=== PATIENT | male | born 1940 | race Hispanic/Latino ===

== ENCOUNTER 2017-01-10 13:54 | Inpatient (IN) | payer MEDICARE ==
--- NOTE | 2017-01-10 15:40 | XRay Report ---
PORTABLE CHEST INDICATION: Shortness of breath. COMPARISON: 12/26/2016 FINDINGS: Portable, frontal chest radiograph demonstrates stable cardiomediastinal silhouette. No focal consolidation, pleural effusions or CHF. Aortic knob calcifications. Thoracic spondylosis. CONCLUSION: No acute significant chest process, stable. Thank you for the opportunity to participate in this patient's care.
[2017-01-10 15:43] LABS: Basophils % (Auto) 0.5 % (0.0-1.8); Eosinophils % (Auto) 8.8 % (0.0-4.3); Hematocrit 40.7 % (35.5-45.6); Hemoglobin 13.5 gm/dl (11.8-15.2); Mean Corpuscular HGB Conc 33 % (32-34); Mean Corpuscular Hemoglobin 28 pg (28-32); Mean Corpuscular Volume 84 fl (84-94); Platelet Count 281 K/mm3 (140-440); Red Blood Count 4.87 M/mm3 (3.65-5.03); Red Cell Distribution Width 15.2 % (13.2-15.2); White Blood Count 10.4 K/mm3 (4.5-11.0)
[2017-01-10 15:57] LABS: Albumin 3.3 g/dL (3.9-5); Albumin/Globulin Ratio 1.3 %; BUN/Creatinine Ratio 10.95; Bilirubin,Total 0.6 mg/dL (0.1-1.2); Calcium 8.8 mg/dL (8.4-10.2); Chloride 104.2 mmol/L (98-107); Magnesium 1.8 mg/dL (1.7-2.3); Total Protein 5.9 g/dL (6.3-8.2)
[2017-01-10 16:12] LABS: Bilirubin,Urine Negative (Negative); Blood,Urine Moderate (Negative); Ketones,Urine Negative (Negative)
[2017-01-10 16:13] LABS: Leukocyte Esterase,Urine Negative (Negative); Nitrite,Urine Negative (Negative); Urobilinogen,Urine < 2.0 mg/dL (<2.0)
[2017-01-10 16:14] LABS: Mucus,Urine FEW /HPF
--- NOTE | 2017-01-10 16:56 | Emergency Department Report ---
ED Altered Mental Status HPI - General Chief Complaint: Altered Mental Status Stated Complaint: FLUID OVERLOAD/ AMS Time Seen by Provider: 01/10/17 16:40 Source: family, RN/MD, EMS Mode of arrival: Stretcher Limitations: Altered Mental Status, Physical Limitation - History of Present Illness Initial Comments: Patient is a 76-year-old male who presents with altered mental status. History is limited due to patient's altered mental status. Patient was recently in the hospital. He had recent stents placed in the bladder is currently alert and oriented [address] Patient denies pain. Discussed with patient's family A state that he hasn't been eating well. And that he has not been taking his medication at the halfway. They are concerned that he is not getting appropriate care at the halfway. - Related Data Home Medications Medication Instructions Recorded Confirmed Last Taken Acetaminophen [Acetaminophen TAB] 650 mg PO Q4H PRN MDD 3000mg 12/26/16 Unknown Bisacodyl [Dulcolax suppos] 10 mg MO PRN PRN 12/26/16 01/10/17 Unknown Calcitriol [Rocaltrol] 0.5 mcg PO QDAY 12/26/16 01/10/17 01/09/17 08:00 Calcium Carbonate [Calcium] 1,000 mg PO AC 12/26/16 01/10/17 01/09/17 08:00 Carvedilol [Coreg] 3.125 mg PO BID 12/26/16 01/10/17 01/09/17 21:00 Donepezil [Aricept] 10 mg PO QHS 12/26/16 01/10/17 01/09/17 21:00 Escitalopram [Lexapro] 10 mg PO QDAY 12/26/16 01/10/17 01/09/17 08:00 ISOSORBIDE MONOnitrate [Imdur ER] 30 mg PO QDAY 12/26/16 01/10/17 01/09/17 08:00 Lactobacillus Rhamnosus GG 1 cap PO BID 12/26/16 01/10/17 01/09/17 08:00 [Culturelle] NIFEdipine [Nifedipine ER] 30 mg PO QDAY 12/26/16 01/10/17 01/09/17 08:00 Sodium Bicarbonate 1,300 mg PO QID 12/26/16 01/10/17 01/09/17 21:00 Tamsulosin [Flomax] 0.4 mg PO QDAY 12/26/16 01/10/17 01/09/17 21:00 Therapeutic-M 1 tab PO QDAY 12/26/16 01/10/17 01/09/17 08:00 hydrALAZINE [Apresoline TAB] 75 mg PO BID 12/26/16 01/10/17 01/09/17 21:00 medroxyPROGESTERone ACETATE 20 mg PO QDAY 12/26/16 01/10/17 01/09/17 08:00 [Provera] risperiDONE [RisperiDONE] 1 mg PO BID 12/26/16 01/10/17 01/09/17 21:00 Allergies Allergy/AdvReac Type Severity Reaction Status Date / Time No Known Allergies Allergy Verified 01/10/17 19:52 ED Review of Systems ROS: Stated complaint: FLUID OVERLOAD/ AMS Other details as noted in HPI Comment: Unobtainable due to pts medical conditions ED Past Medical Hx - Past Medical History Hx Hypertension: Yes Hx Congestive Heart Failure: Yes Hx GERD: Yes Hx Renal Disease: Yes (BPH,) Hx Dementia: Yes Additional medical history: depressive, BPH - Surgical History Additional Surgical History: stents placed in bladder - Social History Smoking Status: Unknown if ever smoked - Medications Home Medications: Home Medications Medication Instructions Recorded Confirmed Last Taken Type Acetaminophen [Acetaminophen TAB] 650 mg PO Q4H PRN MDD 3000mg 12/26/16 Unknown History Bisacodyl [Dulcolax suppos] 10 mg MO PRN PRN 12/26/16 01/10/17 Unknown History Calcitriol [Rocaltrol] 0.5 mcg PO QDAY 12/26/16 01/10/17 01/09/17 08:00 History Calcium Carbonate [Calcium] 1,000 mg PO AC 12/26/16 01/10/17 01/09/17 08:00 History Carvedilol [Coreg] 3.125 mg PO BID 12/26/16 01/10/17 01/09/17 21:00 History Donepezil [Aricept] 10 mg PO QHS 12/26/16 01/10/17 01/09/17 21:00 History Escitalopram [Lexapro] 10 mg PO QDAY 12/26/16 01/10/17 01/09/17 08:00 History ISOSORBIDE MONOnitrate [Imdur ER] 30 mg PO QDAY 12/26/16 01/10/17 01/09/17 08: 00 History Lactobacillus Rhamnosus GG 1 cap PO BID 12/26/16 01/10/17 01/09/17 08:00 History [Culturelle] NIFEdipine [Nifedipine ER] 30 mg PO QDAY 12/26/16 01/10/17 01/09/17 08:00 History Sodium Bicarbonate 1,300 mg PO QID 12/26/16 01/10/17 01/09/17 21:00 History Tamsulosin [Flomax] 0.4 mg PO QDAY 12/26/16 01/10/17 01/09/17 21:00 History Therapeutic-M 1 tab PO QDAY 12/26/16 01/10/17 01/09/17 08:00 History hydrALAZINE [Apresoline TAB] 75 mg PO BID 12/26/16 01/10/17 01/09/17 21:00 History medroxyPROGESTERone ACETATE 20 mg PO QDAY 12/26/16 01/10/17 01/09/17 08:00 History [Provera] risperiDONE [RisperiDONE] 1 mg PO BID 12/26/16 01/10/17 01/09/17 21:00 History ED Physical Exam - General Limitations: Altered Mental Status, Physical Limitation General appearance: alert - Head Head exam: Present: atraumatic, normocephalic - Eye Eye exam: Present: normal appearance Pupils: Present: normal accommodation - ENT ENT exam: Present: normal exam - Neck Neck exam: Present: normal inspection - Respiratory Respiratory exam: Present: normal lung sounds bilaterally - Cardiovascular Cardiovascular Exam: Present: regular rate, normal rhythm - GI/Abdominal GI/Abdominal exam: Present: soft - Rectal Rectal exam: Present: deferred - Extremities Exam Extremities exam: Present: pedal edema, other (swelling in hands ) - Back Exam Back exam: Present: normal inspection - Neurological Exam Neurological exam: Present: CN II-XII intact, other (confused and slow to respond ) - Psychiatric Psychiatric exam: Present: flat affect. Absent: manic, homicidal ideation, suicidal ideation - Skin Skin exam: Present: warm, dry ED Course Vital Signs 01/10/17 01/10/17 01/10/17 14:48 16:54 18:55 Temperature 98.7 F Pulse Rate 67 87 Respiratory 16 20 18 Rate Blood Pressure 130/66 Blood Pressure 130/78 [Left] O2 Sat by Pulse 98 99 100 Oximetry 01/10/17 19:48 Temperature Pulse Rate 63 Respiratory 16 Rate Blood Pressure Blood Pressure 126/67 [Left] O2 Sat by Pulse 96 Oximetry - Reevaluation(s) Reevaluation #1: 01/10/17 19:53 Patient's family is at bedside and discussed that patient will need admission due to altered mental status. And not eating as much as he usually eats. He also needs to be diuresed. Reevaluation #2: 01/10/17 21:00 Discussed with patient's family the patient will be admitted they agree with plan and have no further questions. - Lab Data Result diagrams: 01/10/17 15:14 01/10/17 15:14 Lab Results 01/10/17 01/10/17 01/10/17 Range/Units 14:57 15:14 15:14 WBC 10.4 (4.5-11.0) K/mm3 RBC 4.87 (3.65-5.03) M/mm3 Hgb 13.5 (11.8-15.2) gm/dl Hct 40.7 (35.5-45.6) % MCV 84 (84-94) fl MCH 28 (28-32) pg MCHC 33 (32-34) % RDW 15.2 (13.2-15.2) % Plt Count 281 (140-440) K/mm3 Lymph % (Auto) 8.0 L (13.4-35.0) % [place] % (Auto) 7.9 H (0.0-7.3) % Eos % (Auto) 8.8 H (0.0-4.3) % Baso % (Auto) 0.5 (0.0-1.8) % Lymph # 0.8 L (1.2-5.4) K/mm3 [place] # 0.8 (0.0-0.8) K/mm3 Eos # 0.9 H (0.0-0.4) K/mm3 Baso # 0.1 (0.0-0.1) K/mm3 Seg Neutrophils % 74.8 H (40.0-70.0) % Seg Neutrophils # 7.8 H (1.8-7.7) K/mm3 Sodium 144 (137-145) mmol/L Potassium 4.0 (3.6-5.0) mmol/L Chloride 104.2 (98-107) mmol/L Carbon Dioxide 23 (22-30) mmol/L Anion Gap 21 mmol/L BUN 23 H (9-20) mg/dL Creatinine 2.1 H (0.8-1.5) mg/dL Estimated GFR 31 ml/min BUN/Creatinine Ratio 10.95 % Glucose 85 (75-100) mg/dL Lactic Acid (0.7-2.0) mmol/L Calcium 8.8 (8.4-10.2) mg/dL Magnesium 1.80 (1.7-2.3) mg/dL Total Bilirubin 0.60 (0.1-1.2) mg/dL AST 18 (5-40) units/L ALT 9 (7-56) units/L Alkaline Phosphatase 119 (35-129) units/L Troponin T (0.00-0.029) ng/mL NT-Pro-B Natriuret Pep (0-900) pg/mL Total Protein 5.9 L (6.3-8.2) g/dL Albumin 3.3 L (3.9-5) g/dL Albumin/Globulin Ratio 1.3 % Triglycerides (2-149) mg/dL Cholesterol (50-199) mg/dL LDL Cholesterol Direct (50-130) mg/dL HDL Cholesterol (40-59) mg/dL Cholesterol/HDL Ratio % TSH (0.270-4.200) mlU/mL Urine Color Yellow (Yellow) Urine Turbidity Hazy (Clear) Urine pH 6.0 (5.0-7.0) Ur Specific [place] 1.010 (1.003-1.030) Urine Protein 100 mg/dl (Negative) mg/dL Urine Glucose (UA) Negative (Negative) mg/dL Urine Ketones Negative (Negative) mg/dL Urine Blood Moderate A (Negative) Urine Nitrite Negative (Negative) Urine Bilirubin Negative (Negative) Urine Urobilinogen < 2.0 (<2.0) mg/dL Ur Leukocyte Esterase Negative (Negative) Urine WBC (Auto) 37.0 H (0.0-6.0) /HPF Urine RBC (Auto) 171.0 (0.0-6.0) /HPF Urine Mucus Few /HPF 01/10/17 01/10/17 01/10/17 Range/Units 15:14 15:14 15:14 WBC (4.5-11.0) K/mm3 RBC (3.65-5.03) M/mm3 Hgb (11.8-15.2) gm/dl Hct (35.5-45.6) % MCV (84-94) fl MCH (28-32) pg MCHC (32-34) % RDW (13.2-15.2) % Plt Count (140-440) K/mm3 Lymph % (Auto) (13.4-35.0) % [place] % (Auto) (0.0-7.3) % Eos % (Auto) (0.0-4.3) % Baso % (Auto) (0.0-1.8) % Lymph # (1.2-5.4) K/mm3 [place] # (0.0-0.8) K/mm3 Eos # (0.0-0.4) K/mm3 Baso # (0.0-0.1) K/mm3 Seg Neutrophils % (40.0-70.0) % Seg Neutrophils # (1.8-7.7) K/mm3 Sodium (137-145) mmol/L Potassium (3.6-5.0) mmol/L Chloride (98-107) mmol/L Carbon Dioxide (22-30) mmol/L Anion Gap mmol/L BUN (9-20) mg/dL Creatinine (0.8-1.5) mg/dL Estimated GFR ml/min BUN/Creatinine Ratio % Glucose (75-100) mg/dL Lactic Acid 1.00 (0.7-2.0) mmol/L Calcium (8.4-10.2) mg/dL Magnesium (1.7-2.3) mg/dL Total Bilirubin (0.1-1.2) mg/dL AST (5-40) units/L ALT (7-56) units/L Alkaline Phosphatase (35-129) units/L Troponin T 0.057 H (0.00-0.029) ng/mL NT-Pro-B Natriuret Pep 1103 H (0-900) pg/mL Total Protein (6.3-8.2) g/dL Albumin (3.9-5) g/dL Albumin/Globulin Ratio % Triglycerides 69 (2-149) mg/dL Cholesterol 151 (50-199) mg/dL LDL Cholesterol Direct 96 (50-130) mg/dL HDL Cholesterol 42 (40-59) mg/dL Cholesterol/HDL Ratio 3.59 % TSH 1.730 (0.270-4.200) mlU/mL Urine Color (Yellow) Urine Turbidity (Clear) Urine pH (5.0-7.0) Ur Specific [place] (1.003-1.030) Urine Protein (Negative) mg/dL Urine Glucose (UA) (Negative) mg/dL Urine Ketones (Negative) mg/dL Urine Blood (Negative) Urine Nitrite (Negative) Urine Bilirubin (Negative) Urine Urobilinogen (<2.0) mg/dL Ur Leukocyte Esterase (Negative) Urine WBC (Auto) (0.0-6.0) /HPF Urine RBC (Auto) (0.0-6.0) /HPF Urine Mucus /HPF 01/10/17 Range/Units 18:31 WBC (4.5-11.0) K/mm3 RBC (3.65-5.03) M/mm3 Hgb (11.8-15.2) gm/dl Hct (35.5-45.6) % MCV (84-94) fl MCH (28-32) pg MCHC (32-34) % RDW (13.2-15.2) % Plt Count (140-440) K/mm3 Lymph % (Auto) (13.4-35.0) % [place] % (Auto) (0.0-7.3) % Eos % (Auto) (0.0-4.3) % Baso % (Auto) (0.0-1.8) % Lymph # (1.2-5.4) K/mm3 [place] # (0.0-0.8) K/mm3 Eos # (0.0-0.4) K/mm3 Baso # (0.0-0.1) K/mm3 Seg Neutrophils % (40.0-70.0) % Seg Neutrophils # (1.8-7.7) K/mm3 Sodium (137-145) mmol/L Potassium (3.6-5.0) mmol/L Chloride (98-107) mmol/L Carbon Dioxide (22-30) mmol/L Anion Gap mmol/L BUN (9-20) mg/dL Creatinine (0.8-1.5) mg/dL Estimated GFR ml/min BUN/Creatinine Ratio % Glucose (75-100) mg/dL Lactic Acid 1.00 (0.7-2.0) mmol/L Calcium (8.4-10.2) mg/dL Magnesium (1.7-2.3) mg/dL Total Bilirubin (0.1-1.2) mg/dL AST (5-40) units/L ALT (7-56) units/L Alkaline Phosphatase (35-129) units/L Troponin T (0.00-0.029) ng/mL NT-Pro-B Natriuret Pep (0-900) pg/mL Total Protein (6.3-8.2) g/dL Albumin (3.9-5) g/dL Albumin/Globulin Ratio % Triglycerides (2-149) mg/dL Cholesterol (50-199) mg/dL LDL Cholesterol Direct (50-130) mg/dL HDL Cholesterol (40-59) mg/dL Cholesterol/HDL Ratio % TSH (0.270-4.200) mlU/mL Urine Color (Yellow) Urine Turbidity (Clear) Urine pH (5.0-7.0) Ur Specific [place] (1.003-1.030) Urine Protein (Negative) mg/dL Urine Glucose (UA) (Negative) mg/dL Urine Ketones (Negative) mg/dL Urine Blood (Negative) Urine Nitrite (Negative) Urine Bilirubin (Negative) Urine Urobilinogen (<2.0) mg/dL Ur Leukocyte Esterase (Negative) Urine WBC (Auto) (0.0-6.0) /HPF Urine RBC (Auto) (0.0-6.0) /HPF Urine Mucus /HPF 01/10/17 20:54 EKG shows sinus bradycardia with right bundle branch block and left anterior fasciular block. Pt has T wave inversions in V1 and V2. - Radiology Data Radiology results: report reviewed, image reviewed - Medical Decision Making Laboratory Results - last 24 hr 01/10/17 01/10/17 01/10/17 14:57 15:14 15:14 WBC 10.4 RBC 4.87 Hgb 13.5 Hct 40.7 MCV 84 MCH 28 MCHC 33 RDW 15.2 Plt Count 281 Lymph % (Auto) 8.0 L [place] % (Auto) 7.9 H Eos % (Auto) 8.8 H Baso % (Auto) 0.5 Lymph # 0.8 L [place] # 0.8 Eos # 0.9 H Baso # 0.1 Seg Neutrophils % 74.8 H Seg Neutrophils # 7.8 H Sodium 144 Potassium 4.0 Chloride 104.2 Carbon Dioxide 23 Anion Gap 21 BUN 23 H Creatinine 2.1 H Estimated GFR 31 BUN/Creatinine Ratio 10.95 Glucose 85 Lactic Acid Calcium 8.8 Magnesium 1.80 Total Bilirubin 0.60 AST 18 ALT 9 Alkaline Phosphatase 119 Troponin T NT-Pro-B Natriuret Pep Total Protein 5.9 L Albumin 3.3 L Albumin/Globulin Ratio 1.3 Triglycerides Cholesterol LDL Cholesterol Direct HDL Cholesterol Cholesterol/HDL Ratio TSH Urine Color Yellow Urine Turbidity Hazy Urine pH 6.0 Ur Specific [place] 1.010 Urine Protein 100 mg/dl Urine Glucose (UA) Negative Urine Ketones Negative Urine Blood Moderate A Urine Nitrite Negative Urine Bilirubin Negative Urine Urobilinogen < 2.0 Ur Leukocyte Esterase Negative Urine WBC (Auto) 37.0 H Urine RBC (Auto) 171.0 Urine Mucus Few 01/10/17 01/10/17 01/10/17 15:14 15:14 15:14 WBC RBC Hgb Hct MCV MCH MCHC RDW Plt Count Lymph % (Auto) [place] % (Auto) Eos % (Auto) Baso % (Auto) Lymph # [place] # Eos # Baso # Seg Neutrophils % Seg Neutrophils # Sodium Potassium Chloride Carbon Dioxide Anion Gap BUN Creatinine Estimated GFR BUN/Creatinine Ratio Glucose Lactic Acid 1.00 Calcium Magnesium Total Bilirubin AST ALT Alkaline Phosphatase Troponin T 0.057 H NT-Pro-B Natriuret Pep 1103 H Total Protein Albumin Albumin/Globulin Ratio Triglycerides 69 Cholesterol 151 LDL Cholesterol Direct 96 HDL Cholesterol 42 Cholesterol/HDL Ratio 3.59 TSH 1.730 Urine Color Urine Turbidity Urine pH Ur Specific [place] Urine Protein Urine Glucose (UA) Urine Ketones Urine Blood Urine Nitrite Urine Bilirubin Urine Urobilinogen Ur Leukocyte Esterase Urine WBC (Auto) Urine RBC (Auto) Urine Mucus Chief medical diagnosis: Altered mental status secondary to toxic encephalopathy Differential medical diagnosis: N STEMI, heart failure, pneumonia, urinary tract infection deconditioning. Will get CBC, CMP, troponin, BNP, CT head, CXR, UA Patient was previously admitted to the hospital one week ago due to similar circumstances due to patient not being able to feed himself secondary to altered mental status and edema will admit patient for medical managment and reconditioning Critical care attestation.: If time is entered above; I have spent that time in minutes in the direct care of this critically ill patient, excluding procedure time. ED Disposition Clinical Impression: Elevated troponin, TYRA (acute kidney injury), Peripheral edema Altered mental status Qualifiers: Altered mental status type: unspecified Qualified Code(s): R41.82 - Altered mental status, unspecified Hypertension Qualifiers: Hypertension type: essential hypertension Qualified Code(s): I10 - Essential ( primary) hypertension Disposition: DC-09 OP ADMIT IP TO THIS HOSP Is pt being admited?: Yes Does the pt Need Aspirin: No Condition: Fair Instructions: Hypertension (ED) Referrals: PRIMARY CARE, [Primary Care Provider] - 3-5 Days Time of Disposition: 19:45
--- NOTE | 2017-01-10 17:42 | Cat Scan Report ---
FINAL REPORT EXAM: CT HEAD/BRAIN WO CON HISTORY: altered mental status TECHNIQUE: Noncontrast serial axial images from skull base to vertex PRIORS: CT head 12/26/2016 FINDINGS: There is moderate atrophy. There is no mass effect or midline shift. There are no abnormal intra or extra-axial fluid collections. Lateral ventricles are within normal limits for size and configuration. Basilar cisterns are patent. No acute intracranial hemorrhage is identified. Areas of relative hypodensity are seen in the white matter of the cerebral hemispheres. Atherosclerotic changes are noted. Visualized paranasal sinuses and mastoid air cells are well aerated. No acute osseous abnormality is identified. IMPRESSION: 1. No abnormal mass or acute intracranial hemorrhage is identified. 2. Areas of relative hypodensity are seen in the white matter of the cerebral hemispheres. This is a nonspecific finding. It may be related to chronic ischemic change from small vessel disease.
--- NOTE | 2017-01-10 18:52 | Admit Criteria Form ---
Admission Criteria Documentation: RENAL FAILURE, CHRONIC Clinical Indications for Admission to Inpatient Care (Place 'X' for any and all applicable criteria): Admission is indicated for ANY ONE of the following (1)(2)(3)(4)(5): [ ]I. Inpatient admission required rather than observation care (Use Renal Failure, Chronic: Observation Care Criteria as appropriate) because of ANY ONE of the following: [ ]a) Volume overload or uremic symptoms (eg, clinically significant pulmonary edema, hypertension, pericarditis, acidosis) too severe for, or not responsive (eg, for over 24 hours) to emergency department or observation care dialysis or treatment regimen (11) [ ]b) Hemodynamic instability that is severe or persistent [ ]c) Respiratory distress that is severe or persistent (11) [ ]d) Clinically significant electrolyte abnormality that requires inpatient care (eg,hyperkalemia with severe ECG findings)[B] [ ]e) Supplement O2 or respiratory therapy for over 24hrs that is performable only in acute inpatient setting [ ]f) Continuous IV infusion of anticoagulation, platelet inhibitor, vasoactive, or Antiarrhythmic medication (15), [ ]g) Pulmonary artery catheter monitoring [ ]h) Temporary pacemaker placement [ ]i) Emergent pericardiocentesis [ ]j) Other condition, treatment or monitoring requiring inpatient admission [ ]II. Unexplained syncope [A] [ ]III. Recurrent seizures [ ]IV. Severe infections not treatable in outpatient setting (eg, peritonitis)(9 ) [ ]V. Cardiac arrhythmias of immediate concern [X]. Encephalopathy [ ]VII.Bleeding abnormalities (eg, platelet dysfunction) with active (eg, gastrointestinal) bleeding Extended stay beyond goal length of stay may be needed for (3)(4)(35)(36): [ ]a) Continuing uremic complications [ ]b) Comorbidities or complications The original [employer] content created by [employer] has been revised. The portions of the content which have been revised are identified through the use of italic text or in bold, and [facility] has neither reviewed nor approved the modified material. All other unmodified content is copyright [employer]. Please see references footnoted in the original [facility] edition 2016 Admission Criteria Met: Yes
[2017-01-10] MEDS ORDERED: TYLENOL PO PRN (20:30)
[2017-01-10] MEDS ORDERED: DULCOLAX PR PRN (20:30)
--- NOTE | 2017-01-10 20:41 | History and Physical Report ---
History of Present Illness Date of examination: 01/10/17 Chief complaint: Deconditioned, refused eating and drinking History of present illness: 76-year-old male with past medical history significant for dementia, renal insufficiency, hydronephrosis status post bilateral stent placement was brought via EMS to the emergency department from residential for the complaints of patient is not able to eat and drink, was not able to move around , and decreased communication. Patient has dementia and is not able to give history. His daughter was with him but to no much was going on. I tried to contact the other daughter Lobo who has better information about him but couldn't scrap picker her phone. Patient was admitted recently for UTI, CKD, toxic metabolic encephalopathy, bilateral hydronephrosis and urology was evaluated him and change his bilateral ureteral stent and discharged. His previous admission he was alert and oriented. Past History Past Medical History: hypertension, renal failure Past Surgical History: Other ( bilateral stent exchange) Social history: full code. denies: smoking, alcohol abuse, prescription drug abuse, IV drug use Family history: no significant family history Medications and Allergies Allergies Allergy/AdvReac Type Severity Reaction Status Date / Time No Known Allergies Allergy Verified 01/10/17 19:52 Home Medications Medication Instructions Recorded Confirmed Last Taken Type Acetaminophen [Acetaminophen TAB] 650 mg PO Q4H PRN MDD 3000mg 12/26/16 Unknown History Bisacodyl [Dulcolax suppos] 10 mg ME PRN PRN 12/26/16 01/10/17 Unknown History Calcitriol [Rocaltrol] 0.5 mcg PO QDAY 12/26/16 01/10/17 01/09/17 08:00 History Calcium Carbonate [Calcium] 1,000 mg PO AC 12/26/16 01/10/17 01/09/17 08:00 History Carvedilol [Coreg] 3.125 mg PO BID 12/26/16 01/10/17 01/09/17 21:00 History Donepezil [Aricept] 10 mg PO QHS 12/26/16 01/10/17 01/09/17 21:00 History Escitalopram [Lexapro] 10 mg PO QDAY 12/26/16 01/10/17 01/09/17 08:00 History ISOSORBIDE MONOnitrate [Imdur ER] 30 mg PO QDAY 12/26/16 01/10/17 01/09/17 08: 00 History Lactobacillus Rhamnosus GG 1 cap PO BID 12/26/16 01/10/17 01/09/17 08:00 History [Culturelle] NIFEdipine [Nifedipine ER] 30 mg PO QDAY 12/26/16 01/10/17 01/09/17 08:00 History Sodium Bicarbonate 1,300 mg PO QID 12/26/16 01/10/17 01/09/17 21:00 History Tamsulosin [Flomax] 0.4 mg PO QDAY 12/26/16 01/10/17 01/09/17 21:00 History Therapeutic-M 1 tab PO QDAY 12/26/16 01/10/17 01/09/17 08:00 History hydrALAZINE [Apresoline TAB] 75 mg PO BID 12/26/16 01/10/17 01/09/17 21:00 History medroxyPROGESTERone ACETATE 20 mg PO QDAY 12/26/16 01/10/17 01/09/17 08:00 History [Provera] risperiDONE [RisperiDONE] 1 mg PO BID 12/26/16 01/10/17 01/09/17 21:00 History Active Meds: Active Medications Acetaminophen (Tylenol) 650 mg PO Q4H PRN PRN Reason: joint pain and fever Bisacodyl (Dulcolax) 10 mg ME PRN PRN PRN Reason: Constipation Calcitriol (Rocaltrol) 0.5 mcg PO QDAY [facility] Carvedilol (Coreg) 3.125 mg PO BID [facility] Donepezil HCl (Aricept) 10 mg PO QHS [facility] Escitalopram Oxalate (Lexapro) 10 mg PO QDAY [facility] Hydralazine HCl (Apresoline) 75 mg PO BID [facility] Ceftriaxone Sodium (Rocephin/Ns 1 Gm/50 Ml) 1 gm in 50 mls @ 100 mls/hr IV Q24HR [facility] PRN Reason: Protocol Dextrose/Sodium Chloride (D5ns) 1,000 mls @ 100 mls/hr IV DIRECT [facility] Isosorbide Mononitrate (Imdur) 30 mg PO QDAY [facility] Lactobacillus Rhamnosus (Culturelle) 1 each PO BID [facility] Miscellaneous Medication (Calcium Carbonate [Calcium]) 1,000 mg PO AC [facility] Nifedipine (Procardia Xl) 30 mg PO QDAY [facility] Risperidone (Risperdal) 1 mg PO BID [facility] Sodium Bicarbonate (Sodium Bicarbonate) 1,300 mg PO QID [facility] Tamsulosin HCl (Flomax) 0.4 mg PO QDAY [facility] Review of Systems ROS unobtainable: due to mental status (Couldn't obtained because of AMS) Exam - Physical Exam Narrative exam: Not in cardiopulmonary distress. The patient appeared well nourished and normally developed. Vital signs as documented. Head exam is unremarkable. No scleral icterus . Neck is without jugular venous distension, thyromegaly, or carotid bruits. Lungs are clear to auscultation. Cardiac exam reveals regular rate and Rhythm. First and second heart sounds normal. No murmurs, rubs or gallops. Abdominal exam reveals normal bowel sounds, no masses, no organomegaly and no aortic enlargement. Extremities are nonedematous and both femoral and pedal pulses are normal. ELEVATOR OPERATOR FREIGHT: Alert and oriented only to self. - Constitutional Vitals: Temp Pulse Resp BP Pulse Ox 98.7 F 63 16 126/67 96 01/10/17 14:48 01/10/17 19:48 01/10/17 19:48 01/10/17 19:48 01/10/17 19:48 Results - Labs CBC & Chem 7: 01/10/17 15:14 01/10/17 15:14 Labs: Laboratory Last Values WBC 10.4 K/mm3 (4.5-11.0) 01/10/17 15:14 RBC 4.87 M/mm3 (3.65-5.03) 01/10/17 15:14 Hgb 13.5 gm/dl (11.8-15.2) 01/10/17 15:14 Hct 40.7 % (35.5-45.6) 01/10/17 15:14 MCV 84 fl (84-94) 01/10/17 15:14 MCH 28 pg (28-32) 01/10/17 15:14 MCHC 33 % (32-34) 01/10/17 15:14 RDW 15.2 % (13.2-15.2) 01/10/17 15:14 Plt Count 281 K/mm3 (140-440) 01/10/17 15:14 Lymph % (Auto) 8.0 % (13.4-35.0) L 01/10/17 15:14 [place] % (Auto) 7.9 % (0.0-7.3) H 01/10/17 15:14 Eos % (Auto) 8.8 % (0.0-4.3) H 01/10/17 15:14 Baso % (Auto) 0.5 % (0.0-1.8) 01/10/17 15:14 Lymph # 0.8 K/mm3 (1.2-5.4) L 01/10/17 15:14 [place] # 0.8 K/mm3 (0.0-0.8) 01/10/17 15:14 Eos # 0.9 K/mm3 (0.0-0.4) H 01/10/17 15:14 Baso # 0.1 K/mm3 (0.0-0.1) 01/10/17 15:14 Seg Neutrophils % 74.8 % (40.0-70.0) H 01/10/17 15:14 Seg Neutrophils # 7.8 K/mm3 (1.8-7.7) H 01/10/17 15:14 Sodium 144 mmol/L (137-145) 01/10/17 15:14 Potassium 4.0 mmol/L (3.6-5.0) 01/10/17 15:14 Chloride 104.2 mmol/L (98-107) 01/10/17 15:14 Carbon Dioxide 23 mmol/L (22-30) 01/10/17 15:14 Anion Gap 21 mmol/L 01/10/17 15:14 BUN 23 mg/dL (9-20) H 01/10/17 15:14 Creatinine 2.1 mg/dL (0.8-1.5) H 01/10/17 15:14 Estimated GFR 31 ml/min 01/10/17 15:14 BUN/Creatinine Ratio 10.95 % 01/10/17 15:14 Glucose 85 mg/dL (75-100) 01/10/17 15:14 Lactic Acid 1.00 mmol/L (0.7-2.0) 01/10/17 18:31 Calcium 8.8 mg/dL (8.4-10.2) 01/10/17 15:14 Magnesium 1.80 mg/dL (1.7-2.3) 01/10/17 15:14 Total Bilirubin 0.60 mg/dL (0.1-1.2) 01/10/17 15:14 AST 18 units/L (5-40) 01/10/17 15:14 ALT 9 units/L (7-56) 01/10/17 15:14 Alkaline Phosphatase 119 units/L (35-129) 01/10/17 15:14 Troponin T 0.057 ng/mL (0.00-0.029) H 01/10/17 15:14 NT-Pro-B Natriuret Pep 1103 pg/mL (0-900) H 01/10/17 15:14 Total Protein 5.9 g/dL (6.3-8.2) L 01/10/17 15:14 Albumin 3.3 g/dL (3.9-5) L 01/10/17 15:14 Albumin/Globulin Ratio 1.3 % 01/10/17 15:14 Triglycerides 69 mg/dL (2-149) 01/10/17 15:14 Cholesterol 151 mg/dL (50-199) 01/10/17 15:14 LDL Cholesterol Direct 96 mg/dL (50-130) 01/10/17 15:14 HDL Cholesterol 42 mg/dL (40-59) 01/10/17 15:14 Cholesterol/HDL Ratio 3.59 % 01/10/17 15:14 TSH 1.730 mlU/mL (0.270-4.200) 01/10/17 15:14 Urine Color Yellow (Yellow) 01/10/17 14:57 Urine Turbidity Hazy (Clear) 01/10/17 14:57 Urine pH 6.0 (5.0-7.0) 01/10/17 14:57 Ur Specific [place] 1.010 (1.003-1.030) 01/10/17 14:57 Urine Protein 100 mg/dl mg/dL (Negative) 01/10/17 14:57 Urine Glucose (UA) Negative mg/dL (Negative) 01/10/17 14:57 Urine Ketones Negative mg/dL (Negative) 01/10/17 14:57 Urine Blood Moderate (Negative) A 01/10/17 14:57 Urine Nitrite Negative (Negative) 01/10/17 14:57 Urine Bilirubin Negative (Negative) 01/10/17 14:57 Urine Urobilinogen < 2.0 mg/dL (<2.0) 01/10/17 14:57 Ur Leukocyte Esterase Negative (Negative) 01/10/17 14:57 Urine WBC (Auto) 37.0 /HPF (0.0-6.0) H 01/10/17 14:57 Urine RBC (Auto) 171.0 /HPF (0.0-6.0) 01/10/17 14:57 Urine Mucus Few /HPF 01/10/17 14:57 Assessment and Plan Assessment and plan: Toxic metabolic encephalopathy Chronic kidney disease UTI Deconditioning Hypertension Depression - IV Rocephin -IV fluids -Speech and swallow evaluation, NPO -PTOT evaluation - Resume appropriate home medications DVT prophylaxis - Heparin Disposition - Admit to medical floor. Advance Directives: Yes VTE prophylaxis?: Chemical Plan of care discussed with patient/family: Yes
[2017-01-10] MEDS: ROCEPHIN/NS 1 GM/50 ML 1 GM/50 ML BAG IV SCH (21:05)
[2017-01-10] MEDS: APRESOLINE PO SCH (22:19)
[2017-01-10] MEDS: RisperDAL PO SCH (22:19)
[2017-01-10] MEDS: COREG PO SCH (22:19)
[2017-01-11] MEDS: ARICEPT PO SCH ×2 (00:06→22:09)
[2017-01-11] MEDS: CULTURELLE PO SCH ×3 (00:07→22:08)
[2017-01-11] MEDS: SODIUM BICARBONATE PO SCH ×5 (00:07→22:07)
[2017-01-11 04:39] LABS: Basophils % (Auto) 0.8 % (0.0-1.8); Eosinophils % (Auto) 10.1 % (0.0-4.3); Hematocrit 39.3 % (35.5-45.6); Hemoglobin 13.2 gm/dl (11.8-15.2); Mean Corpuscular HGB Conc 34 % (32-34); Mean Corpuscular Hemoglobin 28 pg (28-32); Mean Corpuscular Volume 83 fl (84-94); Platelet Count 253 K/mm3 (140-440); Red Blood Count 4.76 M/mm3 (3.65-5.03); Red Cell Distribution Width 14.9 % (13.2-15.2)
[2017-01-11 04:50] LABS: Calcium 8.9 mg/dL (8.4-10.2); Chloride 104.9 mmol/L (98-107); Potassium 3.9 mmol/L (3.6-5.0)
[2017-01-11] MEDS: HEPARIN SUB-Q SCH ×3 (08:00→20:33)
[2017-01-11] MEDS: TUMS PO SCH ×3 (08:44→16:21)
[2017-01-11] MEDS ORDERED: PROCARDIA XL PO SCH (10:00)
[2017-01-11] MEDS: APRESOLINE PO SCH ×2 (12:37→22:07)
[2017-01-11] MEDS: IMDUR PO SCH (12:38)
[2017-01-11] MEDS: FLOMAX PO SCH (12:38)
[2017-01-11] MEDS: COREG PO SCH ×2 (12:38→22:09)
[2017-01-11] MEDS: RisperDAL PO SCH ×2 (12:39→22:08)
[2017-01-11] MEDS: LEXAPRO PO SCH (12:39)
[2017-01-11] MEDS: ROCALTROL PO SCH (12:39)
[2017-01-11] MEDS: PROCARDIA XL PO SCH (12:39)
--- NOTE | 2017-01-11 17:57 | Progress Note ---
Assessment and Plan Assessment and Plan Assessment and plan: Toxic metabolic encephalopathy Chronic kidney disease UTI Deconditioning Hypertension Depression - IV Rocephin -IV fluids -Speech and swallow evaluation, NPO -PTOT evaluation - Resume appropriate home medications DVT prophylaxis - Heparin Subjective Date of service: 01/11/17 Objective - Constitutional Vitals: Vital Signs - 12hr 01/11/17 01/11/17 01/11/17 08:00 12:30 12:37 Temperature 98.2 F 97.3 F L Pulse Rate 68 64 84 Respiratory 18 20 Rate Blood Pressure 157/78 166/80 166/84 O2 Sat by Pulse 93 94 Oximetry 01/11/17 12:38 Temperature Pulse Rate 84 Respiratory Rate Blood Pressure 166/84 O2 Sat by Pulse Oximetry General appearance: Present: no acute distress, well-nourished - EENT Eyes: PERRL, EOM intact ENT: hearing intact, clear oral mucosa Ears: bilateral: normal - Neck Neck: supple, normal ROM - Respiratory Respiratory effort: normal Respiratory: bilateral: CTA - Breasts Breasts: normal - Cardiovascular Rhythm: regular Heart Sounds: Present: S1 & S2. Absent: gallop, rub Extremities: pulses intact, No edema, normal color, Full ROM - Gastrointestinal General gastrointestinal: Present: soft, non-tender, non-distended, normal bowel sounds - Genitourinary Male genitourinary: normal - Integumentary Integumentary: clear, warm, dry - Musculoskeletal Musculoskeletal: 1, strength equal bilaterally - Neurologic Neurologic: moves all extremities - Psychiatric Psychiatric: memory intact, appropriate mood/affect, intact judgment & insight - Labs CBC & Chem 7: 01/11/17 04:27 01/11/17 04:27
[2017-01-11] MEDS: ROCEPHIN/NS 1 GM/50 ML 1 GM/50 ML BAG IV SCH (20:34)
[2017-01-11] MEDS: D5NS 1,000 ML IV SCH (22:15)
[2017-01-12] MEDS ORDERED: APRESOLINE IV ONE (06:15)
[2017-01-12] MEDS: HEPARIN SUB-Q SCH ×3 (08:53→21:36)
[2017-01-12] MEDS: TUMS PO SCH ×2 (08:53→12:36)
[2017-01-12] MEDS: APRESOLINE PO SCH ×2 (11:01→21:39)
[2017-01-12] MEDS: SODIUM BICARBONATE PO SCH ×4 (11:02→21:37)
[2017-01-12] MEDS: IMDUR PO SCH (11:03)
[2017-01-12] MEDS: ROCALTROL PO SCH (11:03)
[2017-01-12] MEDS: PROCARDIA XL PO SCH (11:03)
[2017-01-12] MEDS: FLOMAX PO SCH (11:04)
[2017-01-12] MEDS: COREG PO SCH ×2 (11:04→21:39)
[2017-01-12] MEDS: RisperDAL PO SCH ×2 (11:05→21:39)
[2017-01-12] MEDS: CULTURELLE PO SCH ×2 (11:06→21:38)
[2017-01-12] MEDS: LEXAPRO PO SCH (11:06)
--- NOTE | 2017-01-12 17:42 | Progress Note ---
Assessment and Plan Assessment and Plan Assessment and plan: Toxic metabolic encephalopathy Chronic kidney disease UTI Deconditioning Hypertension Depression - IV Rocephin -IV fluids -Speech and swallow evaluation, NPO -PTOT evaluation - Resume appropriate home medications DVT prophylaxis - Heparin Subjective Date of service: 01/12/17 Objective - Constitutional Vitals: Vital Signs - 12hr 01/12/17 01/12/17 01/12/17 06:25 07:00 13:46 Temperature 98.0 F 98.5 F Pulse Rate 68 75 63 Respiratory 20 18 Rate Blood Pressure 185/89 175/79 141/81 O2 Sat by Pulse 99 100 Oximetry General appearance: Present: no acute distress, well-nourished - EENT Eyes: PERRL, EOM intact ENT: hearing intact, clear oral mucosa Ears: bilateral: normal - Neck Neck: supple, normal ROM - Respiratory Respiratory effort: normal Respiratory: bilateral: CTA - Breasts Breasts: normal - Cardiovascular Rhythm: regular Heart Sounds: Present: S1 & S2. Absent: gallop, rub Extremities: pulses intact, No edema, normal color, Full ROM - Gastrointestinal General gastrointestinal: Present: soft, non-tender, non-distended, normal bowel sounds - Genitourinary Male genitourinary: normal - Integumentary Integumentary: clear, warm, dry - Musculoskeletal Musculoskeletal: 1, strength equal bilaterally - Neurologic Neurologic: moves all extremities - Psychiatric Psychiatric: memory intact, appropriate mood/affect, intact judgment & insight - Labs CBC & Chem 7: 01/11/17 04:27 01/11/17 04:27
[2017-01-12] MEDS: ROCEPHIN/NS 1 GM/50 ML 1 GM/50 ML BAG IV SCH (21:36)
[2017-01-12] MEDS: ARICEPT PO SCH (21:40)
[2017-01-13] MEDS: D5NS 1,000 ML IV SCH ×2 (04:26→14:45)
[2017-01-13] MEDS: TUMS PO SCH ×3 (08:51→17:30)
[2017-01-13] MEDS: HEPARIN SUB-Q SCH ×3 (08:52→23:34)
[2017-01-13] MEDS: ROCALTROL PO SCH (09:43)
[2017-01-13] MEDS: APRESOLINE PO SCH ×2 (09:43→23:29)
[2017-01-13] MEDS: LEXAPRO PO SCH (09:43)
[2017-01-13] MEDS: IMDUR PO SCH (09:43)
[2017-01-13] MEDS: PROCARDIA XL PO SCH (09:43)
[2017-01-13] MEDS: FLOMAX PO SCH (09:43)
[2017-01-13] MEDS: RisperDAL PO SCH ×2 (09:43→23:33)
[2017-01-13] MEDS: SODIUM BICARBONATE PO SCH ×4 (09:44→23:33)
[2017-01-13] MEDS: COREG PO SCH ×2 (09:44→23:31)
[2017-01-13] MEDS: CULTURELLE PO SCH ×2 (09:45→23:32)
--- NOTE | 2017-01-13 17:12 | Progress Note ---
Assessment and Plan Assessment and Plan Assessment and plan: Toxic metabolic encephalopathy Chronic kidney disease UTI Deconditioning Hypertension Depression - IV Rocephin -IV fluids -Speech and swallow evaluation, NPO -PTOT evaluation - Resume appropriate home medications DVT prophylaxis - Heparin Subjective Date of service: 01/13/17 Objective - Constitutional Vitals: Vital Signs - 12hr 01/13/17 01/13/17 07:20 13:34 Temperature 98.3 F 98.4 F Pulse Rate 51 L 54 L Respiratory 20 20 Rate Blood Pressure 172/86 115/59 O2 Sat by Pulse 97 98 Oximetry General appearance: Present: no acute distress, well-nourished - EENT Eyes: PERRL, EOM intact ENT: hearing intact, clear oral mucosa Ears: bilateral: normal - Neck Neck: supple, normal ROM - Respiratory Respiratory effort: normal Respiratory: bilateral: CTA - Breasts Breasts: normal - Cardiovascular Rhythm: regular Heart Sounds: Present: S1 & S2. Absent: gallop, rub Extremities: pulses intact, No edema, normal color, Full ROM - Gastrointestinal General gastrointestinal: Present: soft, non-tender, non-distended, normal bowel sounds - Genitourinary Male genitourinary: normal - Integumentary Integumentary: clear, warm, dry - Musculoskeletal Musculoskeletal: 1, strength equal bilaterally - Neurologic Neurologic: moves all extremities - Psychiatric Psychiatric: memory intact, appropriate mood/affect, intact judgment & insight - Labs CBC & Chem 7: 01/11/17 04:27 01/11/17 04:27
[2017-01-13] MEDS: ROCEPHIN/NS 1 GM/50 ML 1 GM/50 ML BAG IV SCH (23:28)
[2017-01-13] MEDS: ARICEPT PO SCH (23:30)
[2017-01-14] MEDS: TUMS PO SCH ×4 (07:30→16:58)
[2017-01-14] MEDS: HEPARIN SUB-Q SCH ×3 (08:13→21:48)
[2017-01-14] MEDS: SODIUM BICARBONATE PO SCH ×4 (09:42→21:51)
[2017-01-14] MEDS: FLOMAX PO SCH (09:42)
[2017-01-14] MEDS: ROCALTROL PO SCH (09:42)
[2017-01-14] MEDS: APRESOLINE PO SCH ×2 (09:43→21:54)
[2017-01-14] MEDS: PROCARDIA XL PO SCH (09:44)
[2017-01-14] MEDS: RisperDAL PO SCH ×2 (09:44→21:52)
[2017-01-14] MEDS: IMDUR PO SCH (09:44)
[2017-01-14] MEDS: LEXAPRO PO SCH (09:47)
[2017-01-14] MEDS: COREG PO SCH ×2 (09:48→21:53)
[2017-01-14] MEDS: CULTURELLE PO SCH (12:39)
--- NOTE | 2017-01-14 14:24 | Progress Note ---
Assessment and Plan Assessment and plan: --Toxic metabolic encephalopathy Mild improvement, continue supportive care --Urinary tract infection; continue empiric antibiotics, follow cultures IV fluids --Acute on the kidney disease stage III; very minimal improvement Continue gentle hydration, closely monitor renal function, avoid nephrotoxic medications --Mild congestive heart failure systolic dysfunction; ejection fraction 45-50% Continue current medications --Hypertension; well controlled, continue current antihypertensive medications and when necessary hydralazine --History of depression; continue antidepressant medications Consider psych evaluation if needed --General debility; supportive care, physical therapy occupational therapy --DVT prophylaxis; with heparin --DC planning. Case management, back to [facility] and clinically stable --Full CODE STATUS As we monitor the patient and adjust management as needed Closely monitor the patient and adjust the management as needed Possible discharge in 1-2 days if stable History Interval history: Patient was seen and evaluated in his room this morning medical records reviewed Neurologic events reported by the nursing staff No new complaints Alert and awake vital signs reviewed Hospitalist Physical - Constitutional Vitals: Temp Pulse Resp BP Pulse Ox 98.5 F 68 20 155/84 97 01/14/17 08:39 01/14/17 09:48 01/14/17 08:39 01/14/17 09:48 01/13/17 22:00 General appearance: Present: no acute distress, well-nourished - EENT Eyes: Present: PERRL, EOM intact - Neck Neck: Present: supple, normal ROM - Respiratory Respiratory effort: normal Respiratory: bilateral: diminished, negative: rales, rhonchi, wheezing - Cardiovascular Rhythm: regular Heart Sounds: Present: S1 & S2 - Extremities Extremities: no ischemia, pulses intact, pulses symmetrical Peripheral Pulses: within normal limits - Abdominal General gastrointestinal: soft, non-tender, non-distended, normal bowel sounds - Integumentary Integumentary: Present: clear, warm - Psychiatric Psychiatric: appropriate mood/affect - Neurologic Neurologic: moves all extremities Results - Labs CBC & Chem 7: 01/11/17 04:27 01/11/17 04:27 Labs: Laboratory Last Values WBC 10.0 K/mm3 (4.5-11.0) 01/11/17 04:27 RBC 4.76 M/mm3 (3.65-5.03) 01/11/17 04:27 Hgb 13.2 gm/dl (11.8-15.2) 01/11/17 04:27 Hct 39.3 % (35.5-45.6) 01/11/17 04:27 MCV 83 fl (84-94) L 01/11/17 04:27 MCH 28 pg (28-32) 01/11/17 04:27 MCHC 34 % (32-34) 01/11/17 04:27 RDW 14.9 % (13.2-15.2) 01/11/17 04:27 Plt Count 253 K/mm3 (140-440) 01/11/17 04:27 Lymph % (Auto) 8.2 % (13.4-35.0) L 01/11/17 04:27 [place] % (Auto) 9.7 % (0.0-7.3) H 01/11/17 04:27 Eos % (Auto) 10.1 % (0.0-4.3) H 01/11/17 04:27 Baso % (Auto) 0.8 % (0.0-1.8) 01/11/17 04:27 Lymph # 0.8 K/mm3 (1.2-5.4) L 01/11/17 04:27 [place] # 1.0 K/mm3 (0.0-0.8) H 01/11/17 04:27 Eos # 1.0 K/mm3 (0.0-0.4) H 01/11/17 04:27 Baso # 0.1 K/mm3 (0.0-0.1) 01/11/17 04:27 Seg Neutrophils % 71.2 % (40.0-70.0) H 01/11/17 04:27 Seg Neutrophils # 7.1 K/mm3 (1.8-7.7) 01/11/17 04:27 Sodium 142 mmol/L (137-145) 01/11/17 04:27 Potassium 3.9 mmol/L (3.6-5.0) 01/11/17 04:27 Chloride 104.9 mmol/L (98-107) 01/11/17 04:27 Carbon Dioxide 23 mmol/L (22-30) 01/11/17 04:27 Anion Gap 18 mmol/L 01/11/17 04:27 BUN 24 mg/dL (9-20) H 01/11/17 04:27 Creatinine 2.0 mg/dL (0.8-1.5) H 01/11/17 04:27 Estimated GFR 33 ml/min 01/11/17 04:27 BUN/Creatinine Ratio 12.00 % 01/11/17 04:27 Glucose 80 mg/dL (75-100) 01/11/17 04:27 Lactic Acid 1.00 mmol/L (0.7-2.0) 01/10/17 18:31 Calcium 8.9 mg/dL (8.4-10.2) 01/11/17 04:27 Magnesium 1.80 mg/dL (1.7-2.3) 01/10/17 15:14 Total Bilirubin 0.60 mg/dL (0.1-1.2) 01/10/17 15:14 AST 18 units/L (5-40) 01/10/17 15:14 ALT 9 units/L (7-56) 01/10/17 15:14 Alkaline Phosphatase 119 units/L (35-129) 01/10/17 15:14 Troponin T 0.057 ng/mL (0.00-0.029) H 01/10/17 15:14 NT-Pro-B Natriuret Pep 1103 pg/mL (0-900) H 01/10/17 15:14 Total Protein 5.9 g/dL (6.3-8.2) L 01/10/17 15:14 Albumin 3.3 g/dL (3.9-5) L 01/10/17 15:14 Albumin/Globulin Ratio 1.3 % 01/10/17 15:14 Triglycerides 69 mg/dL (2-149) 01/10/17 15:14 Cholesterol 151 mg/dL (50-199) 01/10/17 15:14 LDL Cholesterol Direct 96 mg/dL (50-130) 01/10/17 15:14 HDL Cholesterol 42 mg/dL (40-59) 01/10/17 15:14 Cholesterol/HDL Ratio 3.59 % 01/10/17 15:14 TSH 1.730 mlU/mL (0.270-4.200) 01/10/17 15:14 Urine Color Yellow (Yellow) 01/10/17 14:57 Urine Turbidity Hazy (Clear) 01/10/17 14:57 Urine pH 6.0 (5.0-7.0) 01/10/17 14:57 Ur Specific [place] 1.010 (1.003-1.030) 01/10/17 14:57 Urine Protein 100 mg/dl mg/dL (Negative) 01/10/17 14:57 Urine Glucose (UA) Negative mg/dL (Negative) 01/10/17 14:57 Urine Ketones Negative mg/dL (Negative) 01/10/17 14:57 Urine Blood Moderate (Negative) A 01/10/17 14:57 Urine Nitrite Negative (Negative) 01/10/17 14:57 Urine Bilirubin Negative (Negative) 01/10/17 14:57 Urine Urobilinogen < 2.0 mg/dL (<2.0) 01/10/17 14:57 Ur Leukocyte Esterase Negative (Negative) 01/10/17 14:57 Urine WBC (Auto) 37.0 /HPF (0.0-6.0) H 01/10/17 14:57 Urine RBC (Auto) 171.0 /HPF (0.0-6.0) 01/10/17 14:57 Urine Mucus Few /HPF 01/10/17 14:57
[2017-01-14] MEDS: ROCEPHIN/NS 1 GM/50 ML 1 GM/50 ML BAG IV SCH (21:35)
[2017-01-14] MEDS: ARICEPT PO SCH (22:00)
[2017-01-15 05:22] LABS: BUN/Creatinine Ratio 7.89; Calcium 8.5 mg/dL (8.4-10.2); Chloride 106.6 mmol/L (98-107); Potassium 3.8 mmol/L (3.6-5.0)
[2017-01-15] MEDS: LEXAPRO PO SCH (09:12)
[2017-01-15] MEDS: ROCALTROL PO SCH (09:12)
[2017-01-15] MEDS: FLOMAX PO SCH (09:13)
[2017-01-15] MEDS: SODIUM BICARBONATE PO SCH ×4 (09:13→18:23)
[2017-01-15] MEDS: IMDUR PO SCH (09:13)
[2017-01-15] MEDS: TUMS PO SCH ×2 (09:14→16:43)
[2017-01-15] MEDS: COREG PO SCH (09:15)
[2017-01-15] MEDS: APRESOLINE PO SCH (09:15)
[2017-01-15] MEDS: PROCARDIA XL PO SCH (09:17)
[2017-01-15] MEDS: RisperDAL PO SCH (09:17)
[2017-01-15 09:18] VITALS: BP 155/88
[2017-01-15] MEDS: HEPARIN SUB-Q SCH (09:18)
--- NOTE | 2017-01-15 13:43 | Discharge Summary ---
Providers - Providers Date of Admission: 01/11/17 05:45 Date of discharge: 01/15/17 Attending physician: HAMZAH BANKS 01/12/17 04:34 Consult to Wound/ET Nurse [CONS] Urgent Reason For Exam: wound eval Primary care physician: MAINTENANCE INSTRUCTOR Hospitalization Reason for admission: metabolic encephalopathy /poor oral intake Condition: Fair Pertinent studies: CT head without contrast; no abnormal mass or acute intracranial hemorrhage, area of hypodensity in the white matter of cerebral hemisphere may be chronic ischemic changes from small vessel disease X-ray chest; normal study Hospital course: Discharge diagnosis; Toxic metabolic encephalopathy Sepsis secondary to urinary tract infection Acute on chronic kidney disease stage III Acute on chronic systolic congestive heart failure EF 45-50% Hypertension Depression Gen. debility Dementia Hydronephrosis status post bilateral stent placement Brief history and hospital course; 76-year-old male patient with multiple medical problems including dementia was admitted through emergency room with generalized weakness altered level of consciousness and decreased oral intake for a few days Patient was initially evaluated admitted to the hospital symptomatically managed Electrolytes closely monitored, patient's symptoms significantly improved, received physical therapy occupational therapy. Symptoms significantly improved, patient was back to baseline mental status The day of discharge patient is comfortable now no new complaints Vital signs are stable, [id number] evaluation physical examination done by me prior to discharge is unremarkable as detailed below Patient is hemodynamically and clinically stable for discharge and transfer to detention facility Disposition: [id number]/[id number] DEBI CERT Time spent for discharge: 32 min Core Measure Documentation - Palliative Care Palliative Care/ Comfort Measures: Not Applicable - Core Measures Any of the following diagnoses?: none Exam - Constitutional Vitals: Temp Pulse Resp BP Pulse Ox 98.1 F 77 18 155/88 96 01/15/17 10:00 01/15/17 10:00 01/15/17 10:00 01/15/17 10:01/15/17 10:00 General appearance: Present: no acute distress, well-nourished - EENT Eyes: Present: PERRL, EOM intact - Neck Neck: Present: supple, normal ROM - Respiratory Respiratory effort: normal Respiratory: negative: rales, rhonchi, wheezing - Cardiovascular Rhythm: regular Heart Sounds: Present: S1 & S2 - Extremities Extremities: no ischemia, No edema - Abdominal General gastrointestinal: Present: soft, non-tender, non-distended, normal bowel sounds - Integumentary Integumentary: Present: clear, warm (age-related changes) - Musculoskeletal Musculoskeletal: strength equal bilaterally - Psychiatric Psychiatric: cooperative, other (confused at times) - Neurologic Neurologic: moves all extremities Plan Activity: advance as tolerated, fall precautions Diet: other (mechanical soft diet/advance as tolerated) Special Instructions: physical therapy Additional Instructions: Mechanical soft diet and advance as tolerated Follow up with: PRIMARY CARE,MD [Primary Care Provider] - 3-5 Days
== END 2017-01-15 19:25 | DRG 682 ==
LOC: ED 13:54 → 4A 01-11 05:45 → CC2 01-13 21:30
PROVIDERS: ADMIT Internal Medicine; ATTEND Internal Medicine
DX: N17.9 Acute kidney failure, unspecified (principal); G92 Toxic encephalopathy; N39.0 Urinary tract infection, site not specified; I50.20 Unspecified systolic (congestive) heart failure; I13.0 Hypertensive heart and chronic kidney disease with heart failure and stage 1 through stage 4 chronic kidney disease, or unspecified chronic kidney disease; N18.9 Chronic kidney disease, unspecified; F32.9 Major depressive disorder, single episode, unspecified; K21.9 Gastro-esophageal reflux disease without esophagitis; N40.0 Benign prostatic hyperplasia without lower urinary tract symptoms; F03.90 Unspecified dementia, unspecified severity, without behavioral disturbance, psychotic disturbance, mood disturbance, and anxiety; Z79.899 Other long term (current) drug therapy
CPT/HCPCS: 36415; 70450; 71010; 80048; 80053; 80061; 81001; 82140; 83735; 83880; 84443; 84484; 85025; 87086; 93005; 93010; G8978-GP; G8979-GP; G8996-GN; G8997-GN; G8998-GN; J0360; J0696; J1644; J7042

== ENCOUNTER 2017-01-22 18:44 | Inpatient (IN) | payer MEDICARE ==
--- NOTE | 2017-01-22 20:42 | Emergency Department Report ---
ED Extremity Problem HPI - General Chief complaint: Extremity Injury, Lower Stated complaint: POSITIVE VENOUS DOPPLER TEST RT LEG Time Seen by Provider: 01/22/17 20:17 Source: patient, EMS, old records reviewed Mode of arrival: Stretcher Limitations: Physical Limitation - History of Present Illness Initial comments: 76-year-old male with a past medical history of CHF, dementia, GERD, hypertension, BPH, and depression presents to the hospital with right lower extremity DVT confirmed with outpatient Doppler. Results did not accompany patient to the hospital. Patient has significant dementia and unable to give any history of present illness. He does deny any pain at this time or shortness of breath. Previous discharged summary reviewed. Patient was admitted here 729 until 8-4 altered mental status. Diagnosis includes toxic metabolic encephalopathy, UTI, acute on chronic kidney disease and mild CHF. Family members report patient has not ambulated much since discharge from the hospital. Patient's medical list provided by [facility] include Provera tablet 20 mg once a day but I am unsure as to why this patient is on this medication. - Related Data Home Medications Medication Instructions Recorded Confirmed Last Taken Acetaminophen [Acetaminophen TAB] 650 mg PO Q4H PRN MDD 3000mg 12/26/1601/22/17 Bisacodyl [Dulcolax suppos] [address] PRN PRN 12/26/16 01/22/17 01/22/17 Calcitriol [Rocaltrol] 0.5 mcg PO QDAY 12/26/16 01/22/17 01/22/17 Calcium Carbonate [Calcium] 1,000 mg PO AC 12/26/16 01/22/17 01/22/17 Carvedilol [Coreg] 3.125 mg PO BID 12/26/16 01/22/17 01/22/17 Donepezil [Aricept] 10 mg PO QHS 12/26/16 01/22/17 01/22/17 Escitalopram [Lexapro] 10 mg PO QDAY 12/26/16 01/22/17 01/22/17 ISOSORBIDE MONOnitrate [Imdur ER] 30 mg PO QDAY 12/26/16 01/22/17 01/22/17 Lactobacillus Rhamnosus GG 1 cap PO BID 12/26/16 01/22/17 01/22/17 [Culturelle] NIFEdipine [Nifedipine ER] 30 mg PO QDAY 12/26/16 01/22/17 01/22/17 Sodium Bicarbonate 1,300 mg PO QID 12/26/16 01/22/17 01/22/17 Tamsulosin [Flomax] 0.4 mg PO QDAY 12/26/16 01/22/17 01/22/17 Therapeutic-M 1 tab PO QDAY 12/26/16 01/22/17 01/22/17 hydrALAZINE [Apresoline TAB] 75 mg PO BID 12/26/16 01/22/17 01/22/17 medroxyPROGESTERone ACETATE 20 mg PO DAILY 01/22/17 01/22/17 01/22/17 [Provera] Allergies Allergy/AdvReac Type Severity Reaction Status Date / Time No Known Allergies Allergy Verified 01/22/17 20:03 ED Review of Systems ROS: Stated complaint: POSITIVE VENOUS DOPPLER TEST RT LEG Other details as noted in HPI Comment: Unobtainable due to pts medical conditions (Limited due to dementia see HPI) ED Past Medical Hx - Past Medical History Hx Hypertension: Yes Hx Congestive Heart Failure: Yes Hx GERD: Yes Hx Renal Disease: Yes (BPH,) Hx Dementia: Yes Additional medical history: depressive, BPH - Surgical History Additional Surgical History: stents placed in bladder - Social History Smoking Status: Never Smoker Substance Use Type: None - Medications Home Medications: Home Medications Medication Instructions Recorded Confirmed Last Taken Type Acetaminophen [Acetaminophen TAB] 650 mg PO Q4H PRN MDD 3000mg 12/26/1601/22/17 History Bisacodyl [Dulcolax suppos] [address] PRN PRN 12/26/16 01/22/17 01/22/17 History Calcitriol [Rocaltrol] 0.5 mcg PO QDAY 12/26/16 01/22/17 01/22/17 History Calcium Carbonate [Calcium] 1,000 mg PO AC 12/26/16 01/22/17 01/22/17 History Carvedilol [Coreg] 3.125 mg PO BID 12/26/16 01/22/17 01/22/17 History Donepezil [Aricept] 10 mg PO QHS 12/26/16 01/22/17 01/22/17 History Escitalopram [Lexapro] 10 mg PO QDAY 12/26/16 01/22/17 01/22/17 History ISOSORBIDE MONOnitrate [Imdur ER] 30 mg PO QDAY 12/26/16 01/22/17 01/22/17 History Lactobacillus Rhamnosus GG 1 cap PO BID 12/26/16 01/22/17 01/22/17 History [Culturelle] NIFEdipine [Nifedipine ER] 30 mg PO QDAY 12/26/16 01/22/17 01/22/17 History Sodium Bicarbonate 1,300 mg PO QID 12/26/16 01/22/17 01/22/17 History Tamsulosin [Flomax] 0.4 mg PO QDAY 12/26/16 01/22/17 01/22/17 History Therapeutic-M 1 tab PO QDAY 12/26/16 01/22/17 01/22/17 History hydrALAZINE [Apresoline TAB] 75 mg PO BID 12/26/16 01/22/17 01/22/17 History medroxyPROGESTERone ACETATE 20 mg PO DAILY 01/22/17 01/22/17 01/22/17 History [Provera] ED Physical Exam - General Limitations: Physical Limitation - Other Other exam information: General: No limitations, patient is alert in no acute distress Head exam: Atraumatic, normocephalic Eyes exam: Normal appearance, ENT: Moist mucous membrane, normal oropharynx, dried blood in right nare Neck exam: Normal inspection, full range of motion, no meningismus nontender Respiratory exam: Clear to auscultation bilateral, no wheezes, rales, crackles Cardiovascular: Normal rate and rhythm Abdomen: Soft, nondistended, and nontender, with normal bowel sounds, no rebound, or guarding Extremity: Full range of motion, right leg greater in size of the cath in the left. Mild tenderness to bilateral calves. 2+ DP pulses. No warmth or erythema Back: Normal Inspection, full range of motion, no tenderness Neurologic: Alert, oriented to self, cranial nerves intact, equal hand cupola charger insulation and foot dorsiflexion Psychiatric: normal affect, normal mood Skin: Warm, dry, intact ED Course Vital Signs 01/22/17 01/22/17 01/22/17 19:17 19:21 19:29 Temperature 98.2 F Pulse Rate 72 71 77 Respiratory 21 26 H 16 Rate Blood Pressure 156/87 Blood Pressure 156/87 [Left] O2 Sat by Pulse 96 97 98 Oximetry 01/22/17 01/22/17 01/22/17 19:30 19:41 19:51 Temperature Pulse Rate 68 70 70 Respiratory 19 26 H 22 Rate Blood Pressure 157/79 157/79 157/86 Blood Pressure [Left] O2 Sat by Pulse 98 97 98 Oximetry 01/22/17 01/22/17 01/22/17 20:01 20:11 20:21 Temperature Pulse Rate 69 69 74 Respiratory 24 19 15 Rate Blood Pressure 153/82 153/82 153/82 Blood Pressure [Left] O2 Sat by Pulse 96 98 97 Oximetry 01/22/17 01/22/17 01/22/17 20:30 20:41 20:51 Temperature Pulse Rate 70 71 71 Respiratory 26 H 23 29 H Rate Blood Pressure 162/83 162/83 156/82 Blood Pressure [Left] O2 Sat by Pulse 96 97 98 Oximetry 01/22/17 21:01 Temperature Pulse Rate 70 Respiratory 17 Rate Blood Pressure 175/84 Blood Pressure [Left] O2 Sat by Pulse Oximetry ED Medical Decision Making - Lab Data Result diagrams: 01/22/17 20:35 01/22/17 20:35 - Medical Decision Making If we cannot obtain records of recent DVT results them the study may need to be repeated. Doppler exams not available at this time of the evening. Patient be admitted for diagnosis of acute DVT for anticoagulation. Patient with some acute on chronic renal sufficiency - Differential Diagnosis DVT, coagulopathy Critical Care Time: No Critical care attestation.: If time is entered above; I have spent that time in minutes in the direct care of this critically ill patient, excluding procedure time. ED Disposition Clinical Impression: Right leg DVT, Dementia, Acute on chronic renal insufficiency Disposition: OP ADMIT IP TO THIS HOSP Is pt being admited?: Yes Condition: Stable Time of Disposition: 21:28 (Dr Castro/hosp)
[2017-01-22 21:00] LABS: Basophils % (Auto) 0.9 % (0.0-1.8); Eosinophils % (Auto) 5.5 % (0.0-4.3); Mean Corpuscular HGB Conc 33 % (32-34); Mean Corpuscular Hemoglobin 28 pg (28-32); Mean Corpuscular Volume 84 fl (84-94); Platelet Count 314 K/mm3 (140-440); Red Blood Count 5.02 M/mm3 (3.65-5.03); Red Cell Distribution Width 15.1 % (13.2-15.2); White Blood Count 11.1 K/mm3 (4.5-11.0)
[2017-01-22 21:11] LABS: BUN/Creatinine Ratio 8.33; Calcium 9.4 mg/dL (8.4-10.2); Chloride 99.7 mmol/L (98-107); INR 1.14 (0.87-1.13); Potassium 4.5 mmol/L (3.6-5.0)
[2017-01-22 21:12] LABS: Partial Thromboplastin Time 29.9 Sec. (24.2-36.6)
[2017-01-22] MEDS ORDERED: LOVENOX SUB-Q ONE (21:57)
--- NOTE | 2017-01-22 22:29 | History and Physical Report ---
History of Present Illness Date of examination: 01/22/17 Date of admission: 01/22/17 Chief complaint: DVT right leg History of present illness: Patient is a 76-year-old with dementia, hypertension, chronic kidney disease, and chronic systolic CHF. He is a resident at care home. Patient was actually just discharged to [facility] 7 days ago on its 01/15/17. [facility] because of Doppler ultrasound done as an outpatient showed a DVT of the right leg. However on coming here patient did not bring his results and because of dementia, patient cannot provide much of a history. He has been started on anticoagulation and is being admitted for further management. Past History Past Medical History: heart failure (Chronic systolic heart failure), hypertension, renal failure (CKD), other (dementia,hydronephrosis,) Past Surgical History: Other (bilateral stent exchange) Social history: full code, other (Lives in SNF). denies: smoking, alcohol abuse Family history: no significant family history Medications and Allergies Allergies Allergy/AdvReac Type Severity Reaction Status Date / Time No Known Allergies Allergy Verified 01/22/17 20:03 Home Medications Medication Instructions Recorded Confirmed Last Taken Type Acetaminophen [Acetaminophen TAB] 650 mg PO Q4H PRN MDD 3000mg 12/26/1601/22/17 History Bisacodyl [Dulcolax suppos] 10 mg ME PRN PRN 12/26/16 01/22/17 01/22/17 History Calcitriol [Rocaltrol] 0.5 mcg PO QDAY 12/26/16 01/22/17 01/22/17 History Calcium Carbonate [Calcium] 1,000 mg PO AC 12/26/16 01/22/17 01/22/17 History Carvedilol [Coreg] 3.125 mg PO BID 12/26/16 01/22/17 01/22/17 History Donepezil [Aricept] 10 mg PO QHS 12/26/16 01/22/17 01/22/17 History Escitalopram [Lexapro] 10 mg PO QDAY 12/26/16 01/22/17 01/22/17 History ISOSORBIDE MONOnitrate [Imdur ER] 30 mg PO QDAY 12/26/16 01/22/17 01/22/17 History Lactobacillus Rhamnosus GG 1 cap PO BID 12/26/16 01/22/17 01/22/17 History [Culturelle] NIFEdipine [Nifedipine ER] 30 mg PO QDAY 12/26/16 01/22/17 01/22/17 History Sodium Bicarbonate 1,300 mg PO QID 12/26/16 01/22/17 01/22/17 History Tamsulosin [Flomax] 0.4 mg PO QDAY 12/26/16 01/22/17 01/22/17 History Therapeutic-M 1 tab PO QDAY 12/26/16 01/22/17 01/22/17 History hydrALAZINE [Apresoline TAB] 75 mg PO BID 12/26/16 01/22/17 01/22/17 History medroxyPROGESTERone ACETATE 20 mg PO DAILY 01/22/17 01/22/17 01/22/17 History [Provera] Review of Systems ROS unobtainable: due to mental status Exam - Physical Exam Narrative exam: Gen appearance: Not in acute distress HEENT: normocephalic,atraumatic Neck:supple, no JVD Lungs: clear to auscultation bilaterally, no crackles or wheezes Heart :S1 and S2 regular, no murmurs, rubs or gallop Abdomen: Soft, non tender, normal bowel sounds. Extremities : right leg swollen, no cyanosis Neuro: Awake ,alert, confused, oriented in person, place, not in time - Constitutional Vitals: Temp Pulse Resp BP Pulse Ox 98.2 F 70 17 175/84 98 01/22/17 19:29 01/22/17 21:01 01/22/17 21:01 01/22/17 21:01 01/22/17 20:51 Results - Labs CBC & Chem 7: 01/22/17 20:35 01/22/17 20:35 Labs: Abnormal lab results 01/22/17 01/22/17 01/22/17 Range/Units 20:35 20:35 20:35 WBC 11.1 H (4.5-11.0) K/mm3 Lymph % (Auto) 6.2 L (13.4-35.0) % Jay % (Auto) 9.5 H (0.0-7.3) % Eos % (Auto) 5.5 H (0.0-4.3) % Lymph # 0.7 L (1.2-5.4) K/mm3 Jay # 1.0 H (0.0-0.8) K/mm3 Eos # 0.6 H (0.0-0.4) K/mm3 Seg Neutrophils % 77.9 H (40.0-70.0) % Seg Neutrophils # 8.6 H (1.8-7.7) K/mm3 PT 15.2 H (12.2-14.9) Sec. INR 1.14 H (0.87-1.13) BUN 25 H (9-20) mg/dL Creatinine 3.0 H (0.8-1.5) mg/dL Glucose 113 H (75-100) mg/dL Assessment and Plan DVT right leg as per report from SNF. Official report not available. Admit to medical floor. Start heparin drip. may repeat Doppler of legs if cannot obtain report. Acute on chronic kidney disease. Creatinine is 3.0 today, higher than baseline of 1.9 last week. Start IV fluids and repeat BMP in the morning. Hypertension. Blood pressure elevated. Resume home meds Dementia. Supportive care Chronic systolic CHF. DVT prophylaxis. Starting heparin drip. Full CODE STATUS
[2017-01-22] MEDS ORDERED: ZOFRAN IV PRN (22:53)
[2017-01-22] MEDS ORDERED: TYLENOL PO PRN (22:53)
[2017-01-22] MEDS ORDERED: MORPHINE IV PRN (22:53)
[2017-01-22] MEDS ORDERED: DULCOLAX PR PRN (22:53)
[2017-01-23] MEDS: NACL 0.9% 1000 ML 1,000 ML IV SCH ×2 (01:11→15:54)
--- NOTE | 2017-01-23 02:33 | Admit Criteria Form ---
Admission Criteria Documentation: DEEP VENOUS THROMBOSIS OF LOWER EXTREMITIES Clinical Indications for Admission to Inpatient Care ( Place 'X' for any and all applicable criteria): Admission is indicated for ANY ONE of the following (1)(2)(3)(4): [ ]I. Documented extensive thrombosis (e.g., clot in vena cava or above iliofemoral bifurcation) [ ]II. Limb-threatening thrombosis (e.g., phlegmasia cerulea dolens) [ ]III. Active bleeding [ ]IV. Recent surgery (e.g., within 6 weeks) [ ]V. Active peptic ulcer disease [ ]. Thrombosis while on anticoagulation [ ]VII. [X]VIII. Appropriate monitoring and therapy cannot be provided in home or outpatient setting [ ]IX. Thrombolysis (e.g., catheter-directed) or pharmaco mechanical thrombectomy needed (3) [ ]X. Vena cava filter placement planned (3) [ ]XI. Severely diminished cardiopulmonary reserve (e.g., pulmonary hypertension) [ ]XII. Severe renal failure (e.g., GFR less than 30 mL/min/1.73m2 (0.5 mL/sec /1.73m2)) [ ]XIII. Known clotting abnormality or deficiency (antithrombin III, protein C , or protein S) [ ]XIV. History of heparin-induced thrombocytopenia [ ]XV . Personal or family history of bleeding tendency or familial bleeding disorder that requires inpatient admission rather than observation care (Also use Deep Venous Thrombosis of Lower Extremities: Observation Care as appropriate) because of ANY ONE of the following: [ ]a) Significant allergic, autoimmune (thrombocytopenia), or coagulopathic reaction occurs in response to anticoagulation [ ]b) Other significant finding or clinical condition judged not to be within the scope of observation care Extended stay beyond goal length of stay may be needed for(1)(19): [ ]a) Hemorrhage or recent surgery(3) [ ]b) Inadequate oral anticoagulation [ ]c) Recurrent thromboembolism(3) [ ]d) Heparin-induced thrombocytopenia(14) The original [email or web address] content created by [facility] has been revised. The portions of the content which have been revised are identified through the use of italic text or in bold, and [facility] has neither reviewed nor approved the modified material. All other unmodified content is copyright [facility]. Please see references footnoted in the original [facility] edition 2016 Admission Criteria Met: Yes
[2017-01-23] MEDS ORDERED: DULCOLAX PR PRN (04:09)
[2017-01-23] MEDS ORDERED: TYLENOL PO PRN (04:09)
[2017-01-23 04:45] LABS: Basophils % (Auto) 0.9 % (0.0-1.8); Eosinophils % (Auto) 9.2 % (0.0-4.3); Hematocrit 39.2 % (35.5-45.6); Hemoglobin 13.3 gm/dl (11.8-15.2); Mean Corpuscular HGB Conc 34 % (32-34); Mean Corpuscular Hemoglobin 28 pg (28-32); Mean Corpuscular Volume 83 fl (84-94); Platelet Count 270 K/mm3 (140-440); Red Blood Count 4.74 M/mm3 (3.65-5.03); Red Cell Distribution Width 14.9 % (13.2-15.2); White Blood Count 9.5 K/mm3 (4.5-11.0)
[2017-01-23 04:56] LABS: INR 1.22 (0.87-1.13)
[2017-01-23 04:57] LABS: Partial Thromboplastin Time 40.4 Sec. (24.2-36.6)
[2017-01-23 05:00] LABS: BUN/Creatinine Ratio 8.88; Calcium 9.6 mg/dL (8.4-10.2); Chloride 107.1 mmol/L (98-107)
[2017-01-23] MEDS ORDERED: HEPARIN 10,000 UNITS/10 ML IV ONE (05:00)
[2017-01-23] MEDS: HEPARIN/ 0.45% NACL-25,000 UNIT/500 ML 25,000 UNIT/500 ML BAG IV SCH (05:04)
[2017-01-23] MEDS ORDERED: CALCIUM CARBONATE 1000 MG PO SCH (07:30)
[2017-01-23] MEDS ORDERED: THERAPEUTIC M PO SCH (10:00)
[2017-01-23] MEDS ORDERED: PROCARDIA XL PO SCH (10:00)
[2017-01-23] MEDS: IMDUR PO SCH (11:14)
[2017-01-23] MEDS: COREG PO SCH ×2 (11:14→22:54)
[2017-01-23] MEDS: LEXAPRO PO SCH (11:15)
[2017-01-23] MEDS: APRESOLINE PO SCH ×2 (11:16→22:54)
[2017-01-23] MEDS: ROCALTROL PO SCH (11:17)
[2017-01-23] MEDS: TUMS PO SCH ×3 (11:23→19:56)
[2017-01-23] MEDS: SODIUM BICARBONATE PO SCH ×4 (13:42→22:57)
[2017-01-23] MEDS: CULTURELLE PO SCH ×2 (13:42→22:57)
[2017-01-23] MEDS: FLOMAX PO SCH (13:42)
[2017-01-23] MEDS: PROCARDIA XL PO SCH (13:42)
[2017-01-23] MEDS: THERAGRAN-M Tab PO SCH (13:43)
--- NOTE | 2017-01-23 16:21 | Vascular Lab Report ---
LOWER EXTREMITY VENOUS DUPLEX: REASON FOR EXAM: swelling of the lower extremities. COMMENTS ON THE RIGHT: Noncompressible distal right femoral vein, popliteal vein and calf vessels. All other veins visualized are freely compressible without evidence of internal echogenicity. COMMENTS ON THE LEFT: All veins visualized are freely compressible without evidence of internal echogenicity. Flow is spontaneous and phasic throughout. IMPRESSION: DVT of femoral vein, popliteal vein extending to calf vessels of right lower extremity.
--- NOTE | 2017-01-23 17:50 | Progress Note ---
Assessment and Plan Assessment and plan: Patient is a 76-year-old with dementia, hypertension, chronic kidney disease, and chronic systolic CHF. He is a resident at residential. Patient was actually just discharged to [facility] 7 days ago on its 01/15/17. Today he was sent in from [facility] because of Doppler ultrasound done as an outpatient showed a DVT of the right leg Venous Dopplers of lower extremities show acute DVT in the right lower extremity * DVT right leg, continue heparin drip, will likely transition to eliquis prior to discharge * Acute on chronic kidney disease, most likely due to vasomotor nephropathy: Continue IV fluids, repeat BMP in the morning. Baseline creatinine is 2.2 * Hypertension, continue current meds * Dementia, continue supportive care * Chronic systolic CHF, patient does not appear to be in exacerbation at this time, his ICD hydrated, continue IV fluids for 1 more day * DVT prophylaxis, full anticoagulated History Interval history: Patient is demented and has no ability to give any history, but he is pleasant and smiles and answers simple questions. His nurse does not report any events Hospitalist Physical - Physical exam Narrative exam: General: Patient appears well in no distress HEENT: MMM, EOMI cardiac: S1-S2 heard lungs: clear to auscultation, abdomen: soft, nontender, nondistended bowel sounds positive extremities: Right lower extremity swelling Skin: no rash or lesion Neuro: Moves all extremities, answers questions, he is pleasant, he lacks insight. Psych: Pleasantly demented - Constitutional Vitals: Temp Pulse Resp BP Pulse Ox 98.2 F 62 20 148/85 97 01/23/17 16:00 01/23/17 16:00 01/23/17 16:00 01/23/17 16:00 01/23/17 16:00 Results - Labs CBC & Chem 7: 01/23/17 04:18 01/23/17 04:18 Labs: Laboratory Last Values WBC 9.5 K/mm3 (4.5-11.0) 01/23/17 04:18 RBC 4.74 M/mm3 (3.65-5.03) 01/23/17 04:18 Hgb 13.3 gm/dl (11.8-15.2) 01/23/17 04:18 Hct 39.2 % (35.5-45.6) 01/23/17 04:18 MCV 83 fl (84-94) L 01/23/17 04:18 MCH 28 pg (28-32) 01/23/17 04:18 MCHC 34 % (32-34) 01/23/17 04:18 RDW 14.9 % (13.2-15.2) 01/23/17 04:18 Plt Count 270 K/mm3 (140-440) 01/23/17 04:18 Lymph % (Auto) 11.9 % (13.4-35.0) L 01/23/17 04:18 [place] % (Auto) 10.4 % (0.0-7.3) H 01/23/17 04:18 Eos % (Auto) 9.2 % (0.0-4.3) H 01/23/17 04:18 Baso % (Auto) 0.9 % (0.0-1.8) 01/23/17 04:18 Lymph # 1.1 K/mm3 (1.2-5.4) L 01/23/17 04:18 [place] # 1.0 K/mm3 (0.0-0.8) H 01/23/17 04:18 Eos # 0.9 K/mm3 (0.0-0.4) H 01/23/17 04:18 Baso # 0.1 K/mm3 (0.0-0.1) 01/23/17 04:18 Seg Neutrophils % 67.6 % (40.0-70.0) 01/23/17 04:18 Seg Neutrophils # 6.4 K/mm3 (1.8-7.7) 01/23/17 04:18 PT 16.0 Sec. (12.2-14.9) H 01/23/17 04:18 INR 1.22 (0.87-1.13) H 01/23/17 04:18 APTT 40.4 Sec. (24.2-36.6) H 01/23/17 04:18 Heparin Anti-Xa Level 1.62 U.I./ml (0.3-0.7) H 01/23/17 10:46 Sodium 142 mmol/L (137-145) 01/23/17 04:18 Potassium 4.0 mmol/L (3.6-5.0) 01/23/17 04:18 Chloride 107.1 mmol/L (98-107) H 01/23/17 04:18 Carbon Dioxide 21 mmol/L (22-30) L 01/23/17 04:18 Anion Gap 18 mmol/L 01/23/17 04:18 BUN 24 mg/dL (9-20) H 01/23/17 04:18 Creatinine 2.7 mg/dL (0.8-1.5) H 01/23/17 04:18 Estimated GFR 23 ml/min 01/23/17 04:18 BUN/Creatinine Ratio 8.88 % 01/23/17 04:18 Glucose 78 mg/dL (75-100) 01/23/17 04:18 Calcium 9.6 mg/dL (8.4-10.2) 01/23/17 04:18 - Imaging and Cardiology Venous US: image reviewed (right lower extremity DVT)
[2017-01-23] MEDS: ARICEPT PO SCH (22:54)
[2017-01-24] MEDS: NACL 0.9% 1000 ML 1,000 ML IV SCH (05:33)
[2017-01-24] MEDS: HEPARIN/ 0.45% NACL-25,000 UNIT/500 ML 25,000 UNIT/500 ML BAG IV SCH (07:38)
[2017-01-24] MEDS: TUMS PO SCH ×3 (07:40→16:21)
--- NOTE | 2017-01-24 07:46 | Progress Note ---
Assessment and Plan Assessment and plan: Patient is a 76-year-old with dementia, hypertension, chronic kidney disease, and chronic systolic CHF. [facility] is a [facility] at [facility]. Patient was actually just discharged to [facility] 7 days ago on its 01/15/17. [facility] because of Doppler ultrasound done as an outpatient showed a DVT of the right leg Venous Dopplers of lower extremities show acute DVT in the right lower extremity * DVT right leg, continue heparin drip, will likely transition to eliquis prior to discharge * Acute on chronic kidney disease, most likely due to vasomotor nephropathy: creat is improving, Continue IV fluids, repeat BMP in the morning. Baseline creatinine is 2.2, obtain renal consult * metabolic acidosis- bicarbonate drip * Hypertension, continue current meds * Dementia, continue supportive care * Chronic systolic CHF, patient does not appear to be in exacerbation at this time, he is actually dehydrated, continue IV fluids judiciously * DVT prophylaxis, full anticoagulated History Interval history: Patient is demented and has no ability to give any history, but he is pleasant and smiles and answers simple questions. His nurse does not report any events Hospitalist Physical - Physical exam Narrative exam: General: Patient appears well in no distress HEENT: MMM, EOMI cardiac: S1-S2 heard lungs: clear to auscultation, abdomen: soft, nontender, nondistended bowel sounds positive extremities: Right lower extremity swelling Skin: no rash or lesion Neuro: Moves all extremities, answers questions, he is pleasant, he lacks insight. Psych: Pleasantly demented - Constitutional Vitals: Temp Pulse Resp BP Pulse Ox 98.5 F 60 20 145/80 98 01/24/17 00:47 01/24/17 00:47 01/24/17 00:47 01/24/17 00:47 01/24/17 00:47 Results - Labs CBC & Chem 7: 01/25/17 04:23 01/24/17 09:53 Labs: Laboratory Last Values WBC 9.5 K/mm3 (4.5-11.0) 01/23/17 04:18 RBC 4.74 M/mm3 (3.65-5.03) 01/23/17 04:18 Hgb 13.3 gm/dl (11.8-15.2) 01/23/17 04:18 Hct 39.2 % (35.5-45.6) 01/23/17 04:18 MCV 83 fl (84-94) L 01/23/17 04:18 MCH 28 pg (28-32) 01/23/17 04:18 MCHC 34 % (32-34) 01/23/17 04:18 RDW 14.9 % (13.2-15.2) 01/23/17 04:18 Plt Count 270 K/mm3 (140-440) 01/23/17 04:18 Lymph % (Auto) 11.9 % (13.4-35.0) L 01/23/17 04:18 [place] % (Auto) 10.4 % (0.0-7.3) H 01/23/17 04:18 Eos % (Auto) 9.2 % (0.0-4.3) H 01/23/17 04:18 Baso % (Auto) 0.9 % (0.0-1.8) 01/23/17 04:18 Lymph # 1.1 K/mm3 (1.2-5.4) L 01/23/17 04:18 [place] # 1.0 K/mm3 (0.0-0.8) H 01/23/17 04:18 Eos # 0.9 K/mm3 (0.0-0.4) H 01/23/17 04:18 Baso # 0.1 K/mm3 (0.0-0.1) 01/23/17 04:18 Seg Neutrophils % 67.6 % (40.0-70.0) 01/23/17 04:18 Seg Neutrophils # 6.4 K/mm3 (1.8-7.7) 01/23/17 04:18 PT 16.0 Sec. (12.2-14.9) H 01/23/17 04:18 INR 1.22 (0.87-1.13) H 01/23/17 04:18 APTT 40.4 Sec. (24.2-36.6) H 01/23/17 04:18 Heparin Anti-Xa Level 0.38 U.I./ml (0.3-0.7) 01/24/17 04:19 Sodium 142 mmol/L (137-145) 01/23/17 04:18 Potassium 4.0 mmol/L (3.6-5.0) 01/23/17 04:18 Chloride 107.1 mmol/L (98-107) H 01/23/17 04:18 Carbon Dioxide 21 mmol/L (22-30) L 01/23/17 04:18 Anion Gap 18 mmol/L 01/23/17 04:18 BUN 24 mg/dL (9-20) H 01/23/17 04:18 Creatinine 2.7 mg/dL (0.8-1.5) H 01/23/17 04:18 Estimated GFR 23 ml/min 01/23/17 04:18 BUN/Creatinine Ratio 8.88 % 01/23/17 04:18 Glucose 78 mg/dL (75-100) 01/23/17 04:18 Calcium 9.6 mg/dL (8.4-10.2) 01/23/17 04:18
[2017-01-24] MEDS: SODIUM BICARBONATE PO SCH (09:22)
[2017-01-24] MEDS: THERAGRAN-M Tab PO SCH (09:22)
[2017-01-24] MEDS: IMDUR PO SCH (09:23)
[2017-01-24] MEDS: LEXAPRO PO SCH (09:23)
[2017-01-24] MEDS: APRESOLINE PO SCH ×2 (09:24→22:53)
[2017-01-24] MEDS: FLOMAX PO SCH (09:24)
[2017-01-24] MEDS: COREG PO SCH ×2 (09:24→22:53)
[2017-01-24] MEDS: PROCARDIA XL PO SCH (09:24)
[2017-01-24] MEDS: CULTURELLE PO SCH ×2 (09:25→22:53)
[2017-01-24] MEDS: ROCALTROL PO SCH (09:26)
[2017-01-24 10:30] LABS: BUN/Creatinine Ratio 9.2; Calcium 8.5 mg/dL (8.4-10.2); Chloride 109.9 mmol/L (98-107)
[2017-01-24 11:00] LABS: Potassium 4.8 mmol/L (3.6-5.0)
--- NOTE | 2017-01-24 11:05 | Consultation ---
History of Present Illness - Reason for Consult Consult date: 01/24/17 chronic renal failure - History of Present Illness This is a 76 year old male who was transported to this E.R from [facility] to be evaluated for right lower extremity DVT that was noted on Doppler that was completed through care home. A repeat doppler was done on admission of the right lower extremity and it has confirmed DVT present in right lower extremity extending to calf vessel. Patient has been placed on Heparin drip. Patient has history of Dementia, CHF, BPH, Hypertension, Chronic kidney Disease, Stage 3, Hydroneprosis of right kidney and has underwent ureteral stent exchange on 01/01/17. On admission patient's serum creatinine was elevated at 3.0 which is above patient's baseline of ~ 2.2-2.5. Patient has been placed on IV hydration and current serum creatinine is 2.5. We are being consulted for management of this patient's Acute on Chronic Kidney Disease. Past History Past Medical History: heart failure (Chronic systolic heart failure), hypertension, renal failure (CKD), other (Dementia, Right Hydronephrosis, CKD) Past Surgical History: Other (Bilateral ureteral stent exchange on 01/01/17) Social history: full code, other (Lives in SNF). denies: smoking, alcohol abuse Family history: no significant family history Medications and Allergies Allergies Allergy/AdvReac Type Severity Reaction Status Date / Time No Known Allergies Allergy Verified 01/22/17 20:03 Home Medications Medication Instructions Recorded Confirmed Last Taken Type Acetaminophen [Acetaminophen TAB] 650 mg PO Q4H PRN MDD 3000mg 12/26/1601/22/17 History Bisacodyl [Dulcolax suppos] 10 mg ND PRN PRN 12/26/16 01/22/17 01/22/17 History Calcitriol [Rocaltrol] 0.5 mcg PO QDAY 12/26/16 01/22/17 01/22/17 History Calcium Carbonate [Calcium] 1,000 mg PO AC 12/26/16 01/22/17 01/22/17 History Carvedilol [Coreg] 3.125 mg PO BID 12/26/16 01/22/17 01/22/17 History Donepezil [Aricept] 10 mg PO QHS 12/26/16 01/22/17 01/22/17 History Escitalopram [Lexapro] 10 mg PO QDAY 12/26/16 01/22/17 01/22/17 History ISOSORBIDE MONOnitrate [Imdur ER] 30 mg PO QDAY 12/26/16 01/22/17 01/22/17 History Lactobacillus Rhamnosus GG 1 cap PO BID 12/26/16 01/22/17 01/22/17 History [Culturelle] NIFEdipine [Nifedipine ER] 30 mg PO QDAY 12/26/16 01/22/17 01/22/17 History Sodium Bicarbonate 1,300 mg PO QID 12/26/16 01/22/17 01/22/17 History Tamsulosin [Flomax] 0.4 mg PO QDAY 12/26/16 01/22/17 01/22/17 History Therapeutic-M 1 tab PO QDAY 12/26/16 01/22/17 01/22/17 History hydrALAZINE [Apresoline TAB] 75 mg PO BID 12/26/16 01/22/17 01/22/17 History medroxyPROGESTERone ACETATE 20 mg PO DAILY 01/22/17 01/22/17 01/22/17 History [Provera] Active Meds: Active Medications Acetaminophen (Tylenol) 650 mg PO Q4H PRN PRN Reason: joint pain and fever Bisacodyl (Dulcolax) 10 mg ND QDAY PRN PRN Reason: Constipation unrelieved by MOM Calcitriol (Rocaltrol) 0.5 mcg PO QDAY [facility] Last Admin: 01/24/17 09:26 Dose: 0.5 mcg Calcium Carbonate/Glycine (Tums) 1,000 mg PO AC [facility] Last Admin: 01/24/17 07:40 Dose: 1,000 mg Carvedilol (Coreg) 3.125 mg PO BID [facility] Last Admin: 01/24/17 09:24 Dose: 3.125 mg Donepezil HCl (Aricept) 10 mg PO QHS [facility] Last Admin: 01/23/17 22:54 Dose: 10 mg Escitalopram Oxalate (Lexapro) 10 mg PO QDAY [facility] Last Admin: 01/24/17 09:23 Dose: 10 mg Hydralazine HCl (Apresoline) 75 mg PO BID [facility] Last Admin: 01/24/17 09:24 Dose: 75 mg Sodium Chloride (Nacl 0.9% 1000 Ml) 1,000 mls @ 75 mls/hr IV DIRECT [facility] Last Admin: 01/24/17 05:33 Dose: 75 mls/hr Heparin Sodium/Sodium Chloride (Heparin/ 0.45% Nacl-25,000 Unit/500 Ml) 25,000 unit in 500 mls @ 24 mls/hr IV TITR AUGUSTINA; 1,200 UNITS/HR PRN Reason: Protocol Last Admin: 01/24/17 07:38 Dose: 900 units/hr, 18 mls/hr Isosorbide Mononitrate (Imdur) 30 mg PO QDAY [facility] Last Admin: 01/24/17 09:23 Dose: 30 mg Lactobacillus Rhamnosus (Culturelle) 1 each PO BID [facility] Last Admin: 01/24/17 09:25 Dose: 1 each Morphine Sulfate (Morphine) 2 mg IV Q4H PRN PRN Reason: Pain, Moderate (4-6) Multivitamins/Minerals (Theragran-M Tab) 1 each PO QDAY [facility] Last Admin: 01/24/17 09:22 Dose: 1 each Nifedipine (Procardia Xl) 30 mg PO QDAY [facility] Last Admin: 01/24/17 09:24 Dose: 30 mg Ondansetron HCl (Zofran) 4 mg IV Q6H PRN PRN Reason: nausea or vomiting Sodium Bicarbonate (Sodium Bicarbonate) 1,300 mg PO QID [facility] Last Admin: 01/24/17 09:22 Dose: 1,300 mg Tamsulosin HCl (Flomax) 0.4 mg PO QDAY [facility] Last Admin: 01/24/17 09:24 Dose: 0.4 mg Review of Systems Constitutional: no weight loss, no weight gain, no chills, no sweats, no anorexia Ears, nose, mouth and throat: no ear pain, no ear discharge, no tinnitis, no decreased hearing, no nose pain, no nasal congestion, no nasal discharge, no sinus pressure Cardiovascular: no chest pain, no orthopnea, no palpitations, no rapid/ irregular heart beat, no edema, no syncope, no lightheadedness, no shortness of breath Respiratory: no cough, no cough with sputum, no excessive sputum, no hemoptysis , no shortness of breath, no dyspnea on exertion Gastrointestinal: no abdominal pain, no nausea, no vomiting, no diarrhea, no constipation, no change in bowel habits, no hematemesis Genitourinary Male: incontinence, no hematuria, no flank pain, no discharge, no nocturia Rectal: no incontinence, no bleeding Musculoskeletal: no neck stiffness, no neck pain, no shooting arm pain, no arm numbness/tingling, no low back pain, no shooting leg pain Integumentary: no rash, no pruritis, no redness, no sores, no wounds, no jaundice Neurological: no transient paralysis, no paralysis, no weakness, no parathesias , no numbness, no tingling, no seizures Psychiatric: memory loss, no change in sleep habits, no sleep disturbances, no insomnia, no hypersomnia, no change in appetite Endocrine: no cold intolerance, no polyphagia, no excessive thirst, no polydipsia, no polyuria, no nocturia Exam - Vital Signs Vital signs: Vital Signs Pulse Resp Pulse Ox 72 21 96 01/22/17 19:17 01/22/17 19:17 01/22/17 19:17 - General Appearance General appearance: well-developed, well-nourished, appears stated age EENT: ATNC, PERRL, hearing intact, vision intact Neck: Present: neck supple, trachea midline Respiratory: Clear to Ascultation Heart: regular, S1S2 Gastrointestinal: Present: normoactive bowel sounds Integumentary: warm and dry Neurologic: other (Awake and alert and is oriented to place and self but not time) Musculoskeletal: Present: other (1+ edema to BLE) Psychiatric: cooperative Results - Lab Results 01/23/17 04:18 01/24/17 09:53 Most recent lab results Calcium 8.5 mg/dL (8.4-10.2) 01/24/17 09:53 Assessment and Plan - Patient Problems (1) Right leg DVT Current Visit: Yes Status: Acute Qualifiers: Affected thrombotic vein of extremity: A Chronicity: C Plan to address problem: On Heparin drip (2) Acute on chronic renal insufficiency Current Visit: Yes Status: Acute Plan to address problem: Renal function reviewed. Serum creatinine approaching baseline, currently 2.5 today Acidosis-Switch IVF to Sodium bicarbonate 75meq in 1/2NS@ 75 ml/hr S/P ureteral stent placement for Hydronephrosis on 01/01/17 No need for repeat renal ultrasound at this time Renally dose medications Avoid Nephrotoxins Monitor I/O's (3) Hypertension Current Visit: No Status: Chronic Qualifiers: Hypertension type: essential hypertension Qualified Code(s): I10 - Essential (primary) hypertension Plan to address problem: Continue on anti-hypertenisve agents (4) Acidosis, metabolic Current Visit: Yes Status: Acute Plan to address problem: Acidosis-Switch IVF to Sodium bicarbonate 75meq in 1/2NS@ 75 ml/hr for today then tomorrow will switch to oral bicarb depending on CO2 levels
[2017-01-24] MEDS: ELIQUIS PO SCH ×2 (15:18→22:57)
[2017-01-24] MEDS: NACL 0.45% 1000 ML 1,000 ML with SODIUM BICARBONATE 75 MEQ IV SCH (17:15)
[2017-01-24] MEDS: ARICEPT PO SCH (22:56)
[2017-01-25 05:41] LABS: Hematocrit 39.4 % (35.5-45.6); Hemoglobin 13.2 gm/dl (11.8-15.2)
[2017-01-25] MEDS: TUMS PO SCH ×3 (09:49→17:49)
[2017-01-25] MEDS: NACL 0.45% 1000 ML 1,000 ML with SODIUM BICARBONATE 75 MEQ IV SCH (10:21)
[2017-01-25] MEDS: APRESOLINE PO SCH (10:28)
[2017-01-25] MEDS: ROCALTROL PO SCH (10:28)
--- NOTE | 2017-01-25 10:28 | Progress Note ---
Assessment and Plan Assessment and plan: Patient is a 76-year-old with dementia, hypertension, chronic kidney disease, and chronic systolic CHF. [facility] is a resident at [facility]. Patient was actually just discharged to [facility] 7 days ago on its 01/15/17. Today he was sent in from longterm because of Doppler ultrasound done as an outpatient showed a DVT of the right leg Venous Dopplers of lower extremities show acute DVT in the right lower extremity * DVT right leg, continue eliquis * Acute on chronic kidney disease, most likely due to vasomotor nephropathy: creat is improving, Continue IV fluids, repeat BMP in the morning. Baseline creatinine is 2.2, renal input appreciated, improving with IVFluids * metabolic acidosis- bicarbonate drip * Hypophosphotemia- replete PO * Hypertension, continue current meds * Dementia, continue supportive care * Chronic systolic CHF, patient does not appear to be in exacerbation at this time, he is actually dehydrated, continue IV fluids judiciously * DVT prophylaxis, full anticoagulated History Interval history: Patient is demented and has no ability to give any history, but he is pleasant and smiles and answers simple questions. His nurse does not report any events Hospitalist Physical - Physical exam Narrative exam: General: Patient appears well in no distress HEENT: MMM, EOMI cardiac: S1-S2 heard lungs: clear to auscultation, abdomen: soft, nontender, nondistended bowel sounds positive extremities: Right lower extremity swelling Skin: no rash or lesion Neuro: Moves all extremities, answers questions, he is pleasant, he lacks insight. Psych: Pleasantly demented - Constitutional Vitals: Temp Pulse Resp BP Pulse Ox 100.1 F H 56 L 20 150/100 96 01/25/17 08:01 01/25/17 08:01 01/25/17 08:01 01/25/17 08:01 01/25/17 08:01 Results - Labs CBC & Chem 7: 01/25/17 04:23 01/24/17 09:53 Labs: Laboratory Last Values WBC 9.5 K/mm3 (4.5-11.0) 01/23/17 04:18 RBC 4.74 M/mm3 (3.65-5.03) 01/23/17 04:18 Hgb 13.2 gm/dl (11.8-15.2) 01/25/17 04:23 Hct 39.4 % (35.5-45.6) 01/25/17 04:23 MCV 83 fl (84-94) L 01/23/17 04:18 MCH 28 pg (28-32) 01/23/17 04:18 MCHC 34 % (32-34) 01/23/17 04:18 RDW 14.9 % (13.2-15.2) 01/23/17 04:18 Plt Count 307 K/mm3 (140-440) 01/25/17 04:23 Lymph % (Auto) 11.9 % (13.4-35.0) L 01/23/17 04:18 [place] % (Auto) 10.4 % (0.0-7.3) H 01/23/17 04:18 Eos % (Auto) 9.2 % (0.0-4.3) H 01/23/17 04:18 Baso % (Auto) 0.9 % (0.0-1.8) 01/23/17 04:18 Lymph # 1.1 K/mm3 (1.2-5.4) L 01/23/17 04:18 [place] # 1.0 K/mm3 (0.0-0.8) H 01/23/17 04:18 Eos # 0.9 K/mm3 (0.0-0.4) H 01/23/17 04:18 Baso # 0.1 K/mm3 (0.0-0.1) 01/23/17 04:18 Seg Neutrophils % 67.6 % (40.0-70.0) 01/23/17 04:18 Seg Neutrophils # 6.4 K/mm3 (1.8-7.7) 01/23/17 04:18 PT 16.0 Sec. (12.2-14.9) H 01/23/17 04:18 INR 1.22 (0.87-1.13) H 01/23/17 04:18 APTT 40.4 Sec. (24.2-36.6) H 01/23/17 04:18 Heparin Anti-Xa Level 1.83 U.I./ml (0.3-0.7) H 01/25/17 04:23 Sodium 142 mmol/L (137-145) 01/24/17 09:53 Potassium 4.8 mmol/L (3.6-5.0) 01/24/17 09:53 Chloride 109.9 mmol/L (98-107) H 01/24/17 09:53 Carbon Dioxide 18 mmol/L (22-30) L 01/24/17 09:53 Anion Gap 19 mmol/L 01/24/17 09:53 BUN 23 mg/dL (9-20) H 01/24/17 09:53 Creatinine 2.5 mg/dL (0.8-1.5) H 01/24/17 09:53 Estimated GFR 25 ml/min 01/24/17 09:53 BUN/Creatinine Ratio 9.20 % 01/24/17 09:53 Glucose 86 mg/dL (75-100) 01/24/17 09:53 POC Glucose 67 (70-105) L 01/25/17 05:17 Calcium 8.5 mg/dL (8.4-10.2) 01/24/17 09:53 Phosphorus 2.00 mg/dL (2.5-4.5) L 01/25/17 04:23
[2017-01-25] MEDS: COREG PO SCH (10:31)
[2017-01-25] MEDS: IMDUR PO SCH (10:31)
[2017-01-25] MEDS: LEXAPRO PO SCH (10:31)
[2017-01-25] MEDS: ELIQUIS PO SCH (10:31)
[2017-01-25] MEDS: CULTURELLE PO SCH (10:32)
[2017-01-25] MEDS: FLOMAX PO SCH (10:35)
[2017-01-25] MEDS: THERAGRAN-M Tab PO SCH (10:35)
[2017-01-25] MEDS: PROCARDIA XL PO SCH (10:35)
[2017-01-25 10:38] LABS: BUN/Creatinine Ratio 7.39; Calcium 8.7 mg/dL (8.4-10.2); Chloride 106.8 mmol/L (98-107); Potassium 3.8 mmol/L (3.6-5.0)
--- NOTE | 2017-01-25 14:39 | Discharge Summary ---
Providers - Providers Date of Admission: 01/22/17 22:53 Attending physician: GIOVANNI AIKEN MD 01/23/17 07:59 Consult to Wound/ET Nurse [CONS] Routine Reason For Exam: wound eval 01/24/17 07:44 Consult to Physician [CONS] Routine Consulting Provider: ROSETTE WILL Reason For Exam: TYRA on CKD Place consult to:: dr. will Notified:: answering service Phone number called:: Was contact made?: Yes If yes, spoke with:: dr. will Time called:: 08:57 Primary care physician: AUBREY CAMPOS Hospitalization Condition: Stable Hospital course: Patient is a 76-year-old with dementia, hypertension, chronic kidney disease, and chronic systolic CHF. [facility]. Patient was actually just discharged to [facility] 7 days ago on its 01/15/17. Today he was sent in from prison because of Doppler ultrasound done as an outpatient showed a DVT of the right leg Venous Dopplers of lower extremities show acute DVT in the right lower extremity * DVT right leg, continue eliquis * Acute on chronic kidney disease, most likely due to vasomotor nephropathy: creat is improving, Continue IV fluids, repeat BMP in the morning. Baseline creatinine is 2.2, renal input appreciated, improving with IVFluids * metabolic acidosis- bicarbonate drip * Hypophosphotemia- replete PO * Hypertension, continue current meds * Dementia, continue supportive care * Chronic systolic CHF, patient does not appear to be in exacerbation at this time, he is actually dehydrated, continue IV fluids judiciously * DVT prophylaxis, full anticoagulated Disposition: DC/[place]-03 SNF [facility] Time spent for discharge: 33 minutes Core Measure Documentation - Palliative Care Palliative Care/ Comfort Measures: Not Applicable - Core Measures Any of the following diagnoses?: DVT/PE - VTE Discharge Requirements Deep Vein Thrombosis/Pulmonary Embolism Present on Admission: Yes Has pt received <5 days of overlap therapy or INR<2.0: No (not indicated) Anticoagulant overlap therapy prescribed at discharge: Yes Contraindication No Overlap Therapy order at DC: Not Indicated Exam - Physical Exam Narrative exam: General: Patient appears well in no distress HEENT: MMM, EOMI cardiac: S1-S2 heard lungs: clear to auscultation, abdomen: soft, nontender, nondistended bowel sounds positive extremities: Right lower extremity swelling Skin: no rash or lesion Neuro: Moves all extremities, answers questions, he is pleasant, he lacks insight. Psych: Pleasantly demented - Constitutional Vitals: Temp Pulse Resp BP Pulse Ox 100.1 F H 60 20 150/100 96 01/25/17 08:01 01/25/17 10:31 01/25/17 08:01 01/25/17 10:31 01/25/17 08:01 Plan Follow up with: PRIMARY CAREMD [Referring] - 3-5 Days ROSETTE WILL MD [Staff Physician] - 7 Days Prescriptions: Apixaban [Eliquis] 5 mg PO Q12HR #60 tablet Phosphorus #1 [K-Phos Neutral] 250 mg PO BID 7 Days
--- NOTE | 2017-01-25 15:02 | Progress Note ---
Assessment and Plan - Patient Problems (1) Right leg DVT Current Visit: Yes Status: Acute Qualifiers: Affected thrombotic vein of extremity: A Chronicity: C Plan to address problem: As per primary team Started on Eliquis 5 mg orally twice a day (2) Acute on chronic renal insufficiency Current Visit: Yes Status: Acute Plan to address problem: Renal function reviewed, gradually improving, SCr level decreased to 2.3 today, yesterday's SCr level was 2.5 Renally dose medications Patient being discharged today Discontinue 0.45% + 75 mEq sodium bicarbonate infusion at 75 ml/hr Start on sodium bicarbonate 650 mg orally twice a day Replete phosphorus Continue Flomax Obtain daily weight Strict intake and output Intake= 2035 ml Output= 700 ml (Net= 1335 ml) [place] catheter: No (Condom Catheter) Renal plan discussed with Dr Crisostomo Continue supportive therapy (3) Acidosis, metabolic Current Visit: Yes Status: Acute Plan to address problem: Discontinue sodium bicarbonate drip Start sodium bicarbonate 650 mg orally twice a day Subjective Date of service: 01/25/17 Interval history: Patient reports feeling fatigued, otherwise no complaints voiced. No family at bedside. Objective - Vital Signs Vital signs: Vital Signs - 12hr 01/25/17 01/25/17 01/25/17 08:01 10:28 10:31 Temperature 100.1 F H Pulse Rate 56 L 60 60 Respiratory 20 Rate Blood Pressure 150/100 150/100 150/100 O2 Sat by Pulse 96 Oximetry - General Appearance General appearance: well-nourished (no acute distress) EENT: ATNC Neck: no JVD Respiratory: Present: Other (Lung sounds decreased bilaterally, unlabored) Cardiology: regular, S1S2 Gastrointestinal: normoactive bowel sounds, no tenderness Integumentary: other (right arm dressing in place) Neurologic: other (awake, oriented to person, place, but not time, follows simple commands, moves all 4 extremities) Musculoskeletal: other (trace edema to both lower extremities) Psychiatric: mood/affect appropriate - Lab 01/25/17 04:23 01/25/17 10:03 Most recent lab results Calcium 8.7 mg/dL (8.4-10.2) 01/25/17 10:03 Phosphorus 2.00 mg/dL (2.5-4.5) L 01/25/17 04:23
[2017-01-25] MEDS: K-PHOS NEUTRAL PO SCH ×2 (15:55→17:49)
[2017-01-25 19:14] VITALS: BP 160/90
[2017-01-25] MEDS ORDERED: SODIUM BICARBONATE PO SCH (22:00)
== END 2017-01-25 20:05 | DRG 299 ==
LOC: ED 18:44 → 3A 22:53
PROVIDERS: ADMIT Internal Medicine; ATTEND Internal Medicine
DX: I82.401 Acute embolism and thrombosis of unspecified deep veins of right lower extremity (principal); N17.0 Acute kidney failure with tubular necrosis; I50.22 Chronic systolic (congestive) heart failure; E87.2 Acidosis; I13.0 Hypertensive heart and chronic kidney disease with heart failure and stage 1 through stage 4 chronic kidney disease, or unspecified chronic kidney disease; F03.90 Unspecified dementia, unspecified severity, without behavioral disturbance, psychotic disturbance, mood disturbance, and anxiety; N18.9 Chronic kidney disease, unspecified; K21.9 Gastro-esophageal reflux disease without esophagitis; N40.0 Benign prostatic hyperplasia without lower urinary tract symptoms; F32.9 Major depressive disorder, single episode, unspecified; E83.39 Other disorders of phosphorus metabolism; Z79.899 Other long term (current) drug therapy; E86.0 Dehydration; Z95.828 Presence of other vascular implants and grafts
CPT/HCPCS: 36415; 80048; 82962; 84100; 85014; 85018; 85025; 85049; 85520; 85610; 85730; 93005; 93010; 93970; 96372; J1644; J1650; J7030